=== PATIENT | female | born 1970 | race Caucasian/White ===

== ENCOUNTER 2024-06-16 11:15 | Emergency (ER) | payer BC, SELFPAY ==
[2024-06-16] VITALS (8 sets, daily range): BP systolic 125–150; BP diastolic 59–79; PULSE 68–105; RESP 14–18; TEMP 36.7–36.9; O2SAT 94–99; BMI 30.3
--- NOTE | ~2024-06-16 | XR_ITS ---
EXAMINATION: XR CHEST CLINICAL INFORMATION: Chest pain. COMPARISON: None available. TECHNIQUE: 2 views of the chest were obtained. FINDINGS: The lungs are well expanded. No focal consolidation. No pleural effusion. Cardiac silhouette is within normal limits. XR/XR chest 2V IMPRESSION: No acute abnormality. Electronically signed by: Bird Juarez MD 08/04/2024 09:32 AM EDT RP
--- NOTE | ~2024-06-16 | MR_ITS ---
STUDY PERFORMED: MRA of the chest HISTORY: Chest pain radiating to the back DESCRIPTION: Routine chest MRA protocol without and with contrast was performed. 20 mL's of Gadavist was administered. The images were reviewed and postprocessed on a dedicated 3-D workstation. COMPARISON: None FINDINGS: VASCULAR: Motion artifact is present. ASCENDING AORTA: Ascending thoracic aorta is top normal in size measuring 3.7 cm. Aorta is patent without evidence of acute dissection. AORTIC ARCH: The mid aortic arch 3.2 cm. Two-vessel bovine arch anatomy. The great vessels are patent. No evidence of dissection. DESCENDING AORTA: The mid segment measures 2.2 cm. The aorta is patent without evidence of dissection ABDOMINAL AORTA: Visualized proximal abdominal aorta is normal in caliber. CENTRAL THORACIC VENOUS SYSTEM: Patent NONVASCULAR: Heart is normal in size. Pericardium is normal. No pleural effusions. Motion artifact in the lung parenchyma. MR/MR angio chest wo/w con IMPRESSION: No evidence of aortic dissection.
--- NOTE | ~2024-06-16 | NM_ITS ---
EXAMINATION: PULMONARY PERFUSION STUDY CLINICAL INFORMATION: Elevated d-dimer, pleuritic chest pain. COMPARISON: Chest radiograph 06/16/2024. MRA chest 06/16/2024. TECHNIQUE: Serial gamma scintillation camera images were obtained. The patient received 4 mCi Tc-99m MAA intravenously and a 6-view perfusion study was performed. FINDINGS: No segmental perfusion defects are present. There is homogeneous distribution of activity bilaterally. There are no focal anatomic appearing perfusion defects present. NM/NM pul perfusion IMPRESSION: Normal radionuclide lung ventilation perfusion scan.
--- NOTE | 2024-06-16 11:17 | ECG_ITS ---
Test Reason : cp Blood Pressure : / mmHG Vent. Rate : 099 BPM Atrial Rate : 099 BPM P-R Int : 144 ms QRS Dur : 092 ms QT Int : 352 ms P-R-T Axes : 062 035 071 degrees QTc Int : 451 ms Normal sinus rhythm Normal ECG No previous ECGs available Referred By: Harleen Her Electronically Signed By:KIRK VIZCAINO MD
[2024-06-16 11:56] LABS: MANUAL DIFF FLAG NO
[2024-06-16 11:57] LABS: Basophils Absolute Auto 0.1 X10*3/uL (0.0-0.2); Basophils Percent Auto 1.2 % (0-2); Eosinophils Absolute Auto 0.1 X10*3/uL (0.0-0.4); Eosinophils Percent Auto 2.3 % (0-4); Hematocrit 38.3 % (37.0-47.0); Hemoglobin 13.2 g/dl (12.0-16.0); Imm Gran Abs Auto 0.02 X10*3/uL (0.00-0.03); Imm Gran Pct Auto 0.3 % (0.0-0.4); Lymphocytes Absolute Auto 1.5 X10*3/uL (1.2-4.9); Lymphocytes Percent Auto 25.4 % (20-40); Mean Corpuscular HGB Conc 34.5 g/dl (31.0-35.0); Mean Corpuscular Volume 89.9 fL (80.0-98.0); Mean Platelet Volume 10.1 fL (9.4-12.3); Monocytes Absolute Auto 0.6 X10*3/uL (0.1-1.2); Monocytes Percent Auto 9.5 % (2-11); Neutrophils Absolute Auto 3.7 x10*3/uL (2.0-8.3); Neutrophils Percent Auto 61.3 % (45-73); Platelet Count 280 X10*3/uL (160-400); Red Blood Count 4.26 X10*6/uL (4.20-5.50); Red Cell Distribution Width 13.5 % (11.0-16.0)
[2024-06-16 12:02] LABS: INTERNATIONAL NORM RATIO 0.9 (0.9-1.1); Prothrombin Time 10.9 SEC (11.1-13.3)
[2024-06-16 12:34] LABS: Influenza A PCR NEGATIVE (Negative); Influenza B PCR NEGATIVE (Negative); Resp Syncy Virus RNA Qual PCR NEGATIVE (Negative); SARS COV2 PCR INHOUSE NEGATIVE (Negative)
[2024-06-16 12:39] LABS: Anion Gap 15 (12-20); B Type Natriuretic Peptide 25 pg/mL (<100); Blood Urea Nitrogen 14 mg/dL (9-16); Carbon Dioxide 26 mmol/L (22-29); Chloride 103 mmol/L (96-108); Creatinine Clr Calc Pharmacy 81.2; Estimated Glomerular Filt Rate > 60; Potassium 3.5 mmol/L (3.3-5.1); Sodium 140 mmol/L (135-145)
[2024-06-16 12:40] LABS: Alanine Aminotransferase 17 U/L (0-31); Albumin Level 4.4 g/dL (3.5-5.0); Alkaline Phosphatase 55 U/L (39-117); Aspartate Amino Transferase 24 U/L (5-31); Bilirubin Total 0.3 mg/dL (0.0-1.0); Calcium 9.6 mg/dL (8.4-10.2); Glucose Random 99 mg/dL (60-115); Lipase 21 U/L (8-78); Magnesium 2.1 mg/dL (1.6-2.6); Total Protein 7.4 g/dL (6.5-8.0); Troponin-I High Sensitivity < 2.7 ng/L (<3.5-17.0)
--- NOTE | 2024-06-16 12:47 | ED_ITS ---
HPI - Chest Pain General Chief Complaint: Chest Pain Stated Complaint: Chest pain Time Seen by Provider: 06/16/24 11:52 Source: patient Mode of arrival: ambulatory History of Present Illness ED Provider: Dr Higgins HPI narrative: 53-year-old female with all records and imaging studies at [facility], employee here at [employer] presents with intermittent episodes of lightheadedness, sharp chest pain on the left side with radiation into the back but overall feeling unwell on his though she has chest fullness on the left side. Has known aortic aneurysm at the arch of 4.1 cm which was identified in December of this year. Related Data Allergies Allergy/AdvReac Type Severity Reaction Status Date / Time cephalexin Allergy Unknown Unknown Verified 06/16/24 11:46 ciprofloxacin [Cipro] Allergy Unknown Unknown Verified 06/16/24 11:46 epinephrine Allergy Unknown Unknown Verified 06/16/24 11:46 omeprazole [Prilosec] Allergy Unknown Unknown Verified 06/16/24 11:46 ondansetron [Zofran] Allergy Unknown Unknown Verified 06/16/24 11:46 venlafaxine Allergy Unknown Unknown Verified 06/16/24 11:46 zolpidem Allergy Unknown Unknown Verified 06/16/24 11:46 IV contrast Allergy Unknown Unknown Uncoded 06/16/24 11:46 levoquin Allergy Unknown Unknown Uncoded 06/16/24 11:46 sulfa drugs Allergy Unknown Unknown Uncoded 06/16/24 11:46 Review of Systems 2 Review of Systems: Pertinent positives and negatives as stated in HPI PMFSH Past Medical History Source: nursing notes reviewed Social History Social History Alcohol intake: current Alcohol intake frequency: holidays/special occasions only Smoked in Last 30 Days: No Advance Directives: Yes Advance Directives Information Provided: Yes Advance Directives on File: No Patient : No Physical Exam 2 Vital Signs: Vital Signs: Last Vital Signs Pulse 85 06/16/24 15:45 Resp 16 06/16/24 15:45 BP 131/59 L 06/16/24 15:45 Pulse Ox 97 06/16/24 15:45 O2 Del Method Room Air 06/16/24 15:45 BMI result Body Mass Index 30.3 VITAL SIGNS: Reviewed. GENERAL: Well developed, well nourished, in no acute distress. HEAD: Normocephalic/atraumatic EYES: PERRLA, EOMI EARS: Ext canals without abnormality NOSE: Nares patent bilateral OROPHARYNX: no oral lesions noted, posterior pharynx clear NECK: Supple, no adenopathy LUNGS: Normal breath sounds. No adventitious sounds or accessory muscle use. SpO2<98> CARDIOVASCULAR: Regular rate and rhythm without noted murmurs, no JVD or lower extremity edema. ABDOMEN: Soft, non-tender, non-distended with bowel sounds. MUSCULOSKELETAL: No tenderness, deformities, or effusions noted on gross inspection. EXTREMITIES: No cyanosis, clubbing or edema. SKIN: Inspection of the skin reveals no rashes NEUROLOGIC: Alert and oriented x 4. Strength and sensation to light touch were grossly intact x 4. Medications Administered Discontinued Medications Generic Name Dose Route Start Last Admin Trade Name Freq PRN Reason Stop Dose Admin Lorazepam 1 mg 06/16/24 13:56 06/16/24 14:05 Lorazepam 2 Mg/Ml Vial IVPUSH 06/16/24 13:57 1 mg ONCE ONE Administration Medical Decision Making Medical Decision Making [facility] Narrative: 53-year-old female with history and clinical presentation, DDX: Aneurysm expansion, possible dissection though felt to be mildly less likely, no hypertension at this time, no hypoxia. I reviewed and interpreted all investigations and hematologic indices are without leukocytosis/anemia/thrombocytopenia and chemistry indices are grossly within normal limits to include I sensitivity troponin is being undetectable. CXR negative for infiltrate or venous congestion. EKG: Normal sinus rhythm, HR-99, no STEMI, KS/QRS/QTC is within normal limits, there is no EKG for comparison. Proceed with MRA of chest as patient has history of CT scan IV contrast anaphylaxis but has had MRA without difficulty. Signed out to Dr Manning to follow up with MRA, expect dispo is discharge. Differential Diagnosis Differential Diagnoses: The differential diagnosis associated with the presentation includes Please see the discussion above Admission/Observation Consideration of admission/observation: Escalation of care including admission/observation considered Please see the discussion above Lab Data [facility] Lab Attestation statement: I reviewed the patient's lab results. Please see the discussion above 06/16/24 11:52 06/16/24 11:52 Labs: Lab Results 06/16/24 Range/Units 11:52 WBC 6.0 (4.8-10.8) X10*3/uL RBC 4.26 (4.20-5.50) X10*6/uL Hgb 13.2 (12.0-16.0) g/dl Hct 38.3 (37.0-47.0) % MCV 89.9 (80.0-98.0) fL MCH 31.0 (27.0-33.0) pg MCHC 34.5 (31.0-35.0) g/dl RDW 13.5 (11.0-16.0) % Plt Count 280 (160-400) X10*3/uL MPV 10.1 (9.4-12.3) fL Immature Gran % (Auto) 0.3 (0.0-0.4) % Neut % (Auto) 61.3 (45-73) % Lymph % (Auto) 25.4 (20-40) % [place] % (Auto) 9.5 (2-11) % Eos % (Auto) 2.3 (0-4) % Baso % (Auto) 1.2 (0-2) % Lymph # (Auto) 1.5 (1.2-4.9) X10*3/uL [place] # (Auto) 0.6 (0.1-1.2) X10*3/uL Eos # (Auto) 0.1 (0.0-0.4) X10*3/uL Baso # (Auto) 0.1 (0.0-0.2) X10*3/uL Abs Immat Gran (auto) 0.02 (0.00-0.03) X10*3/uL Absolute Neuts (auto) 3.7 (2.0-8.3) x10*3/uL Absolute Nucleated RBC 0.000 (0.0-0.012) X10*3/uL Nucleated RBC % (auto) 0.0 (0.0-0.2) /100WBC PT 10.9 L (11.1-13.3) SEC INR 0.9 (0.9-1.1) Sodium 140 (135-145) mmol/L Potassium 3.5 (3.3-5.1) mmol/L Chloride 103 (96-108) mmol/L Carbon Dioxide 26 (22-29) mmol/L Anion Gap 15 (12-20) BUN 14 (9-16) mg/dL Creatinine 0.84 (0.5-1.4) mg/dL Estim Creat Clear Calc 81.2 Estimated GFR > 60 Random Glucose 99 (60-115) mg/dL Calcium 9.6 (8.4-10.2) mg/dL Magnesium 2.1 (1.6-2.6) mg/dL Total Bilirubin 0.3 (0.0-1.0) mg/dL AST 24 (5-31) U/L ALT 17 (0-31) U/L Alkaline Phosphatase 55 (39-117) U/L Troponin I High Sens < 2.7 (<3.5-17.0) ng/L B-Natriuretic Peptide 25 (<100) pg/mL Total Protein 7.4 (6.5-8.0) g/dL Albumin 4.4 (3.5-5.0) g/dL Lipase 21 (8-78) U/L Influenza Type A (PCR) NEGATIVE (Negative) Influenza Type B (PCR) NEGATIVE (Negative) RSV RNA Qual (PCR) NEGATIVE (Negative) SARS-CoV-2 RNA (RT-PCR) NEGATIVE (Negative) Independent Interpretation I performed an independent interpretation of an: EKG Interpretation: Please see the discussion Radiology Impression Discussion of test interpretation with radiology: I have reviewed the radiologist's reading. Radiologist Impression: Please see the discussion above. Critical Care Time Critical Care Time Critical Care Time: Yes Total Critical Care Time: 45 Attestation: I attest to the time spent taking care of this patient. Discharge Plan Discharge Clinical Impression: Chest pain Patient Disposition: Still a Patient Print Language: Malian
--- NOTE | 2024-06-16 13:31 | PC.NURSE ---
MRI screening form completed. Pt expresses anxiety and uncertainty regarding procedure. Request to consult with provider again. ED provider notified and will meet with Pt.
[2024-06-16] MEDS: LORazepam 2 MG/ML VIAL 1 MG IVPUSH (14:05)
--- NOTE | 2024-06-16 14:20 | PC.NURSE ---
Pt pre medicated with Ativan prior to MRA however when preparing pt for MRA it was noted another pt in dept needed exam prior to this pt, pt aware.
[2024-06-16] MEDS: Morphine Sulfate 4 MG/ML CARTRIDGE IVPUSH (16:47)
[2024-06-16 17:07] LABS: Troponin-I High Sensitivity 3.2 ng/L (<3.5-17.0)
[2024-06-16] MEDS: LORazepam 2 MG/ML VIAL 0.5 MG IVPUSH (17:15)
--- NOTE | 2024-06-16 17:22 | PC.NURSE ---
Report taken from Stephy GOLDBERG, assumed care of pt at this time. Pt off floor to [facility].
--- NOTE | 2024-06-16 17:24 | PC.NURSE ---
Pt given Ativan for MRA, Dr Manning to bedside for cardiac fast exam.
[2024-06-16 18:18] LABS: D Dimer High Sensitivity 307 NG/ML
--- NOTE | 2024-06-16 18:19 | PC.NURSE ---
Pt remains off floor to MRA.
[2024-06-16] MEDS: gadobutroL 10 ML VIAL IVPUSH ×2 (18:42→18:44)
--- NOTE | 2024-06-16 19:39 | PC.NURSE ---
Pt returned from MRA. Tolerated well per pt report. Reports positive relief from previously administered pain med. Endorsing left sided chest heaviness radiating into back 03/08. Denies accompanying symptoms at rest. A&Ox3 skin pwd respirations even unlabored. VSS. NSR on monitor. Awaiting results, aware of plan of care.
--- NOTE | 2024-06-16 23:16 | PC.NURSE ---
Pt resting comfortably, offers no complaints. VSS. Plan for VQ scan in AM, if negative dc home. Will continue to monitor.
--- NOTE | 2024-06-16 23:45 | MHC.EDTECH ---
pt complaining of dizziness RN aware
[2024-06-16] MEDS: Prochlorperazine Edisylate 10 MG/2 ML VIAL IVPUSH (23:58)
--- NOTE | 2024-06-17 01:11 | PC.NURSE ---
this rn assumed care of pt, pt resting in stretcher, no acute distress noted, respirations even and unlabored. pt normal sinus on tele 70-75bpm.
[2024-06-17 05:25] VITALS: PULSE 60; RESP 15
[2024-06-17 05:33] VITALS: BP 106/55; PULSE 77; RESP 16; TEMP 36.7; O2SAT 98
--- NOTE | 2024-06-17 07:42 | PC.NURSE ---
care assumed from previous RN, patient asleep on stretcher, remains on desk monitor, respirations even and unlabored. no complaints offered at this time
--- NOTE | 2024-06-17 09:22 | PC.NURSE ---
patient remains at nuclear medicine at this time
[2024-06-17 10:21] VITALS: BP 99/59; PULSE 59; RESP 19; TEMP 36.8; O2SAT 99
[2024-06-17 10:24] VITALS: BP 99/59; PULSE 59; RESP 19; TEMP 36.8; O2SAT 99
== END 2024-06-17 10:25 | disposition home or self-care (01) ==
PROVIDERS: Nurse Practitioner Family; Emergency Provider Emergency Medicine
DX: R07.9 Chest pain, unspecified (principal); R42 Dizziness and giddiness; R06.00 Dyspnea, unspecified; Z03.818 Encounter for observation for suspected exposure to other biological agents ruled out
CPT/HCPCS: 0241U; 36415; 71046; 71555; 78580; 80053; 83690; 83735; 83880; 84484; 85025; 85379; 85610; 93005; 96374; 96375; 96376; 99285; A9540; A9585; J0737; J2060; J2270

== ENCOUNTER → 2024-06-16 11:17 | Outpatient (BNV) | payer BC, SELFPAY | PROVIDERS: Emergency Provider Student in an Organized Health Care Education/Training Program; Visit Provider Internal Medicine Cardiovascular Disease | DX: R07.9 Chest pain, unspecified (principal) | CPT/HCPCS: 93010 ==

== ENCOUNTER 2025-02-22 13:28 | Emergency (ER) | payer BC, SELFPAY ==
[2025-02-22] VITALS (7 sets, daily range): BP systolic 117–182; BP diastolic 65–103; PULSE 75–108; RESP 16–20; TEMP 36.6–36.9; O2SAT 95–99; BMI 30.2
--- NOTE | ~2025-02-22 | US_ITS ---
CLINICAL HISTORY: calf pain, cp, ? DVT Venous duplex ultrasound bilateral lower extremity Comparison: None Findings: The visualized deep veins are fully compressible with normal Doppler color flow and spectral tracings. Right popliteal fossa Wilson's cyst measuring 5.3 cm. IMPRESSION: 1. Negative for bilateral lower extremity deep vein thrombosis. This document has been electronically signed by: Ramón Carvalho MD on 02/22/2025 21:42:29
--- NOTE | 2025-02-22 13:41 | ED.GENADULT ---
HPI - General Adult General Chief complaint: Allergic Reaction Stated complaint: allergic reaction Time Seen by Provider: 02/22/25 15:42 Source: patient Mode of arrival: ambulatory Limitations: no limitations History of Present Illness ED Provider: ERNIE MOON PA-C HPI narrative: 54 year old female presents to the ED today for evaluation of possible allergic reaction . She reports feeling generally unwell since Wednesday (x4 days). She took two days off of work where she spent a majority of her time sleeping on her couch. She has been consuming electrolyte drinks over the last few days. Today she tried a peach drink from a brand she has never used before. No known food allergies. She also ate a home made meal for lunch which her had also consumed without issue. Shortly after this she began noticing hives to all four extremities and torso. She took 25 mg Benadryl around 1310 while at work. Her symptoms were not improving and she was advised by her employer to come to the ED for further evaluation. On arrival she began to feel ill and had an episode of vomiting and diarrhea while in the waiting room bathroom. Triage provider treated her with oral pepcid and prednisone and she was brought back to main ED bed for further evaluation. She denies any difficulty swallowing or breathing. Denies shortness of breath. Denies any itching to her throat. Her rash as improved and is nearly resolved. She admits to nausea and chest discomfort, describing a pressure sensation across her chest. No radiation. No known sick contacts however does work in the radiology department at our facility. No new medications or recent medication changes. No new soaps/ lotions/ detergents. No known tick or insect bites. Related Data Previous Rx's ?Medication ?Instructions ?Recorded diphenhydramine HCl 25 mg tablet 25 mg PO Q8H PRN allergic reaction 02/22/25 (Benadryl Allergy) #20 tabs prednisone 20 mg tablet 40 mg (2 x 20 mg) PO DAILY #5 tabs 02/22/25 Allergies Allergy/AdvReac Type Severity Reaction Status Date / Time cephalexin Allergy Unknown Unknown Verified 02/22/25 13:42 ciprofloxacin [Cipro] Allergy Unknown Unknown Verified 02/22/25 13:42 epinephrine Allergy Unknown Unknown Verified 02/22/25 13:42 omeprazole [Prilosec] Allergy Unknown Unknown Verified 02/22/25 13:42 ondansetron [Zofran] Allergy Unknown Unknown Verified 02/22/25 13:42 venlafaxine Allergy Unknown Unknown Verified 02/22/25 13:42 zolpidem Allergy Unknown Unknown Verified 02/22/25 13:42 IV contrast Allergy Unknown Unknown Uncoded 06/16/24 11:46 levoquin Allergy Unknown Unknown Uncoded 06/16/24 11:46 sulfa drugs Allergy Unknown Unknown Uncoded 06/16/24 11:46 Review of Systems Review of Systems: Yes all other systems are reviewed and are negative [facility] Past Medical History Attestation statement: The following information was validated with the patient. Source: old records reviewed and nursing notes reviewed Social History Social History Unable to assess alcohol history related to: Unknown Alcohol intake: current Alcohol intake frequency: holidays/special occasions only Use of substances other than those prescribed or required for medical reasons: Unknown Advance Directives: No Advance Directives Information Provided: Yes Physical Exam ED Vital Signs: Vital Signs - 24 hr 02/22/25 13:40 02/22/25 14:52 02/22/25 16:45 Temperature 98.3 F 98 F 97.9 F Pulse Rate 108 H 94 75 Respiratory Rate 20 18 18 Blood Pressure 177/103 H 182/86 H 122/65 Pulse Oximetry 99 96 97 Oxygen Delivery Method Room Air Room Air Room Air 02/22/25 16:46 02/22/25 19:23 02/22/25 22:12 Temperature 98.5 F Pulse Rate 106 H 92 Respiratory Rate 16 16 Blood Pressure 117/69 170/80 H 133/72 Pulse Oximetry 98 95 Oxygen Delivery Method Room Air Room Air BMI result Body Mass Index 30.2 hypertensive, vitals wnl General: Well appearing, in no acute distress. Skin: Warm, dry, intact. No rashes or lesions. Head: Normocephalic, atraumatic. EENT: Hearing is intact b/l. Conjunctiva clear. PERRLA. EOM intact. Moist mucous membranes.?no angioedema. posterior oropharynx wnl. uvula midline. controlled secretions, speaking in complete sentenes. Neck: Supple without LAD Cardiac: Chest wall symmetric. RRR Lungs: Normal respiratory effort without accessory muscle use. CTA bilaterally. No rales, rhonchi, or wheezes.? Abdomen: Soft, non-tender, non-distended. No rebound tenderness or guarding. Positive BS x4. Back: No midline spinous or paraspinal tenderness. No step off deformity. Ext: Upper and lower extremities atraumatic, without tenderness, deformity, swelling or erythema Neuro: AOx3. Normal speech. Ambulating with steady gait. Course Course Course Narrative: This is a rapid medical exam performed by Cipriano Santoyo NP: Additional HPI, ROS, PE not included below will be deferred to primary provider. Patient is a 54-year-old female with multiple allergies presenting with complaint of allergic reaction. States after lunch, noted redness to leg, arm, chest. Reports some nausea. Took benadryl at 1:10. Reports feeling anxious in triage. No angioedema, uvula edema, lungs CTA. Reevaluation(s) Reevaluation #1: 182 -- CBC without leukocytosis or left shift. No anemia. H&H stable. Chemistry without acute electrolyte abnormality requiring intervention. BUN slightly elevated at 19, normal creatinine. Normal liver function. Troponin undetectable. EKG showing normal sinus rhythm with a rate of 94 beats per minute, QT 362, QTC 452. No acute ischemic changes or ST elevations. Urine without infection. > on re-evaluation, patient still endorsing chest discomfort/ tightness. she states pain has been intermittent however improved since arrival. no longer a pressure sensation. given bump in trop, although still wnl, will repeat 2 hour troponin. repeat ekg ordered. she also reports some anxiety surrounding the situation. she is unclear if this is causing her chest pain. requesting ativan for anxiety and meds for her headache. toradol ordered. 1899 -- patient stable at the end of my shift. bp has improved to 120's/60's, equal in both UEs. she is no longer tachycardic. sign out given to allegra HAMEED pending repeat trop and disposition. Reevaluation #2: I went to go re-evaluate patient her 3rd troponin is negative she does mention that her chest still feels heavy and she is having some chest discomfort which she has never really experienced before. She also mentions that on Wednesday she had some posterior knee/ leg discomfort while at the gym it was uncomfortable enough where patient had to stop working out because of this. She has no history of DVT or PE. She is not anticoagulated. While she has been here she has been persistently tachycardic heart rates greater than 100. At this time will order bilateral DVT studies to lower extremities and will order a D-dimer if this is positive patient will need a V/Q scan as she has anaphylactic reaction to contrast dye. Sign out to Rosemarie Time: 20:47 Reevaluation #3: I Donavon HAMEED have accepted care of the patient and signed out pending dimer and Doppler studies of bilateral lower extremities and final disposition I have independently reviewed the following tests: Labs: Dimer negative at less than 150 Bilateral venous studies:IMPRESSION: 1. Negative for bilateral lower extremity deep vein thrombosis. discussed results with the patient, she is relieved, eager for discharge Medications Administered Discontinued Medications Generic Name Dose Route Start Last Admin Trade Name Freq PRN Reason Stop Dose Admin Diphenhydramine HCl 25 mg 02/22/25 15:52 02/22/25 16:07 Diphenhydramine Hcl 50 Mg/Ml Vial IVPUSH 02/22/25 15:53 25 mg ONCE ONE Administration Famotidine 20 mg 02/22/25 13:47 02/22/25 14:51 Famotidine 20 Mg Tablet PO 02/22/25 13:48 20 mg ONCE ONE Administration Ketorolac Tromethamine 15 mg 02/22/25 18:45 02/22/25 18:52 Ketorolac Tromethamine 15 Mg/Ml Vial IVPUSH 02/22/25 18:46 15 mg ONCE ONE Administration Lorazepam 0.5 mg 02/22/25 18:44 02/22/25 18:52 Lorazepam 2 Mg/Ml Vial IVPUSH 02/22/25 18:45 0.5 mg ONCE ONE Administration Metoclopramide HCl 10 mg 02/22/25 15:52 02/22/25 16:07 Metoclopramide Hcl 10 Mg/2 Ml Vial IVPUSH 02/22/25 15:53 10 mg ONCE ONE Administration Prednisone 60 mg 02/22/25 13:47 02/22/25 14:50 Prednisone 20 Mg Tablet PO 02/22/25 13:48 60 mg ONCE ONE Administration Medical Decision Making Medical Decision Making MDM Narrative: 54 year old female presents to the ED today for evaluation of possible allergic reaction . she is hypertensive and tachycardic, not hypoxic. afebrile. she is generally well appearing and in NAD. no angio edema. posterior oropharynx is wnl. uvula midline, controlling secretions and speaking in complete sentences. no muffled voices. no respiratory distress. lungs cta. no rashes. Differential diagnosis includes allergic reaction, anemia, electrolyte abnormality, dehydration, viral syndrome, gastroenteritis, anxiety, arrhythmia. EKG ordered from triage. Will add on basic labs/ troponin, viral swabs. Prednisone and pepcid ordered from triage. She reports nausea - allergy to zofran. benadryl and reglan ordered. will continue to monitor. Differential Diagnosis Differential Diagnoses: The differential diagnosis associated with the presentation includes as above. Admission/Observation Consideration of admission/observation: Escalation of care including admission/observation considered Lab Data MDM Lab Attestation statement: I reviewed the patient's lab results. as above. 02/22/25 16:04 02/22/25 16:04 Labs: Lab Results 02/22/25 02/22/25 02/22/25 Range/Units 16:04 16:10 18:09 WBC 7.1 (4.8-10.8) X10*3/uL RBC 4.69 (4.20-5.50) X10*6/uL Hgb 14.2 (12.0-16.0) g/dl Hct 42.4 (37.0-47.0) % MCV 90.4 (80.0-98.0) fL MCH 30.3 (27.0-33.0) pg MCHC 33.5 (31.0-35.0) g/dl RDW 13.5 (11.0-16.0) % Plt Count 292 (160-400) X10*3/uL MPV 9.7 (9.4-12.3) fL Immature Gran % (Auto) 0.1 (0.0-0.4) % Neut % (Auto) 74.5 H (45-73) % Lymph % (Auto) 18.0 L (20-40) % [place] % (Auto) 5.5 (2-11) % Eos % (Auto) 0.9 (0-4) % Baso % (Auto) 1.0 (0-2) % Lymph # (Auto) 1.3 (1.2-4.9) X10*3/uL [place] # (Auto) 0.4 (0.1-1.2) X10*3/uL Eos # (Auto) 0.1 (0.0-0.4) X10*3/uL Baso # (Auto) 0.1 (0.0-0.2) X10*3/uL Abs Immat Gran (auto) 0.01 (0.00-0.03) X10*3/uL Absolute Neuts (auto) 5.3 (2.0-8.3) x10*3/uL Absolute Nucleated RBC 0.000 (0.0-0.012) X10*3/uL Nucleated RBC % (auto) 0.0 (0.0-0.2) /100WBC D-Dimer High Sensitivty NG/ML Sodium 140 (135-145) mmol/L Potassium 4.4 D (3.3-5.1) mmol/L Chloride 106 (96-108) mmol/L Carbon Dioxide 27 (22-29) mmol/L Anion Gap 11 L (12-20) BUN 19 H (9-16) mg/dL Creatinine 0.91 (0.5-1.4) mg/dL Estim Creat Clear Calc 74.0 Estimated GFR > 60 Random Glucose 106 (60-115) mg/dL Calcium 9.7 (8.4-10.2) mg/dL Magnesium 2.2 (1.6-2.6) mg/dL Total Bilirubin 0.2 (0.0-1.0) mg/dL AST 28 (5-31) U/L ALT 26 (0-31) U/L Alkaline Phosphatase 71 (39-117) U/L Troponin I High Sens < 2.7 7.5 D (<3.5-17.0) ng/L Total Protein 7.7 (6.5-8.0) g/dL Albumin 4.5 (3.5-5.0) g/dL Lipase 22 (8-78) U/L Urine Color Yellow Urine Appearance Clear Urine pH 6.5 (5.0-9.0) Ur Specific [place] <= 1.005 (1.005-1.025) Urine Protein Negative (Neg-Trace) mg/dL Urine Glucose (UA) Negative (Negative) mg/dL Urine Ketones Negative (Negative) mg/dL Urine Blood Negative (Negative) Urine Nitrite Negative (Negative) Ur Leukocyte Esterase Negative (Negative) Influenza Type A (PCR) NEGATIVE (Negative) Influenza Type B (PCR) NEGATIVE (Negative) RSV RNA Qual (PCR) NEGATIVE (Negative) SARS-CoV-2 RNA (RT-PCR) NEGATIVE (Negative) 02/22/25 02/22/25 Range/Units 20:05 21:36 WBC (4.8-10.8) X10*3/uL RBC (4.20-5.50) X10*6/uL Hgb (12.0-16.0) g/dl Hct (37.0-47.0) % MCV (80.0-98.0) fL MCH (27.0-33.0) pg MCHC (31.0-35.0) g/dl RDW (11.0-16.0) % Plt Count (160-400) X10*3/uL MPV (9.4-12.3) fL Immature Gran % (Auto) (0.0-0.4) % Neut % (Auto) (45-73) % Lymph % (Auto) (20-40) % [place] % (Auto) (2-11) % Eos % (Auto) (0-4) % Baso % (Auto) (0-2) % Lymph # (Auto) (1.2-4.9) X10*3/uL [place] # (Auto) (0.1-1.2) X10*3/uL Eos # (Auto) (0.0-0.4) X10*3/uL Baso # (Auto) (0.0-0.2) X10*3/uL Abs Immat Gran (auto) (0.00-0.03) X10*3/uL Absolute Neuts (auto) (2.0-8.3) x10*3/uL Absolute Nucleated RBC (0.0-0.012) X10*3/uL Nucleated RBC % (auto) (0.0-0.2) /100WBC D-Dimer High Sensitivty < 150 NG/ML Sodium (135-145) mmol/L Potassium (3.3-5.1) mmol/L Chloride (96-108) mmol/L Carbon Dioxide (22-29) mmol/L Anion Gap (12-20) BUN (9-16) mg/dL Creatinine (0.5-1.4) mg/dL Estim Creat Clear Calc Estimated GFR Random Glucose (60-115) mg/dL Calcium (8.4-10.2) mg/dL Magnesium (1.6-2.6) mg/dL Total Bilirubin (0.0-1.0) mg/dL AST (5-31) U/L ALT (0-31) U/L Alkaline Phosphatase (39-117) U/L Troponin I High Sens < 2.7 D (<3.5-17.0) ng/L Total Protein (6.5-8.0) g/dL Albumin (3.5-5.0) g/dL Lipase (8-78) U/L Urine Color Urine Appearance Urine pH (5.0-9.0) Ur Specific [place] (1.005-1.025) Urine Protein (Neg-Trace) mg/dL Urine Glucose (UA) (Negative) mg/dL Urine Ketones (Negative) mg/dL Urine Blood (Negative) Urine Nitrite (Negative) Ur Leukocyte Esterase (Negative) Influenza Type A (PCR) (Negative) Influenza Type B (PCR) (Negative) RSV RNA Qual (PCR) (Negative) SARS-CoV-2 RNA (RT-PCR) (Negative) Independent Interpretation I performed an independent interpretation of an: EKG Interpretation: ekg showing nsr with rate of 94 bpm, no acute ischemic changes or st elevations repeat ekg showing nsr with rate of 90 bpm, no acute ischemic changes or st elevations Prescription Management I considered prescription management with: Pain Medication Social Determinants Patient?s care significantly limited by Social Determinants of Health including: Other Social Determinant of Health Critical Care Time Critical Care Time Critical Care Time: No Discharge Plan Discharge Clinical Impression: Allergic reaction Patient Disposition: Still a Patient Instructions: General Allergic Reaction (ED), Allergy Testing (ED) Additional Instructions: You have been evaluated in the Emergency Department today for an allergic reaction. You have been given medications to control your symptoms and after observation for several hours in the Emergency Department, you are stable for discharge at this time. You can take zyrtec and Pepcid, which are available over the counter, to help control your symptoms at home. You have also been given a prescription for steroids, please take them as directed starting tomorrow. Please schedule an appointment with your primary care provider for follow up. I have provided you with a referral to an arc cutter plasma arc for further testing. Call them to establish care, they will not call you. Return to the Emergency Department if you experience rashes, difficulty breathing or swallowing, lip/mouth/tongue swelling, vomiting, or for any other concerning symptoms. Prescriptions: New prednisone 20 mg tablet 40 mg PO DAILY Qty: 5 0RF diphenhydramine HCl [Benadryl Allergy] 25 mg tablet 25 mg PO Q8H PRN (Reason: allergic reaction) Qty: 20 0RF Referrals: Johnie Aguirre MD [Physician] - 3 days (allergic reaction) Real Dasilva MD [Primary Care Provider] - Stand Alone Forms: Work/School Release Print Language: Uzbek
[2025-02-22] MEDS: predniSONE 20 MG TABLET 60 MG PO (14:50)
[2025-02-22] MEDS: Famotidine 20 MG TABLET PO (14:51)
--- NOTE | 2025-02-22 14:52 | ECG_ITS ---
Test Reason : CP Blood Pressure : */* mmHG Vent. Rate : 94 BPM Atrial Rate : 94 BPM P-R Int : 134 ms QRS Dur : 82 ms QT Int : 362 ms P-R-T Axes : 53 11 41 degrees QTcB Int : 452 ms Normal sinus rhythm Possible Left atrial enlargement Cannot rule out Anterior infarct , age undetermined Abnormal ECG When compared with ECG of 16-Jun-2024 11:28, Nonspecific T wave abnormality no longer evident in Lateral leads Referred By: Tiffany Santoyo Electronically Signed By: KIRK VIZCAINO MD
[2025-02-22] MEDS: Metoclopramide HCl 10 MG/2 ML VIAL IVPUSH (16:07)
[2025-02-22] MEDS: diphenhydrAMINE HCL 50 MG/ML VIAL 25 MG IVPUSH (16:07)
[2025-02-22 16:10] LABS: MANUAL DIFF FLAG NO
[2025-02-22 16:15] LABS: Basophils Absolute Auto 0.1 X10*3/uL (0.0-0.2); Eosinophils Absolute Auto 0.1 X10*3/uL (0.0-0.4); Eosinophils Percent Auto 0.9 % (0-4); Hematocrit 42.4 % (37.0-47.0); Hemoglobin 14.2 g/dl (12.0-16.0); Imm Gran Abs Auto 0.01 X10*3/uL (0.00-0.03); Imm Gran Pct Auto 0.1 % (0.0-0.4); Lymphocytes Absolute Auto 1.3 X10*3/uL (1.2-4.9); Mean Corpuscular HGB Conc 33.5 g/dl (31.0-35.0); Mean Corpuscular Hemoglobin 30.3 pg (27.0-33.0); Mean Corpuscular Volume 90.4 fL (80.0-98.0); Mean Platelet Volume 9.7 fL (9.4-12.3); Monocytes Absolute Auto 0.4 X10*3/uL (0.1-1.2); Monocytes Percent Auto 5.5 % (2-11); Neutrophils Absolute Auto 5.3 x10*3/uL (2.0-8.3); Neutrophils Percent Auto 74.5 % (45-73); Platelet Count 292 X10*3/uL (160-400); Red Blood Count 4.69 X10*6/uL (4.20-5.50); Red Cell Distribution Width 13.5 % (11.0-16.0); White Blood Count 7.1 X10*3/uL (4.8-10.8)
[2025-02-22 16:22] LABS: Appearance Urine Clear; Color Urine Yellow; Glucose Urine UA Negative (Negative); Leukocyte Esterase Urine Negative (Negative); Nitrite Urine Negative (Negative); PH 6.5 (5.0-9.0); Specific Gravity - Urine <= 1.005 (1.005-1.025); Urine Blood Negative (Negative); Urine Ketones Negative (Negative); Urine Protein Negative (Neg-Trace)
[2025-02-22 16:27] LABS: Anion Gap 11 (12-20)
[2025-02-22 16:35] LABS: Alanine Aminotransferase 26 U/L (0-31); Albumin Level 4.5 g/dL (3.5-5.0); Aspartate Amino Transferase 28 U/L (5-31); Bilirubin Total 0.2 mg/dL (0.0-1.0); Blood Urea Nitrogen 19 mg/dL (9-16); Calcium 9.7 mg/dL (8.4-10.2); Carbon Dioxide 27 mmol/L (22-29); Chloride 106 mmol/L (96-108); Estimated Glomerular Filt Rate > 60; Glucose Random 106 mg/dL (60-115); Lipase 22 U/L (8-78); Magnesium 2.2 mg/dL (1.6-2.6); Potassium 4.4 mmol/L (3.3-5.1); Sodium 140 mmol/L (135-145); Total Protein 7.7 g/dL (6.5-8.0)
[2025-02-22 16:38] LABS: Troponin-I High Sensitivity < 2.7 ng/L (<3.5-17.0)
[2025-02-22 16:39] LABS: Alkaline Phosphatase 71 U/L (39-117)
[2025-02-22 17:04] LABS: Influenza A PCR NEGATIVE (Negative); Influenza B PCR NEGATIVE (Negative); Resp Syncy Virus RNA Qual PCR NEGATIVE (Negative); SARS COV2 PCR INHOUSE NEGATIVE (Negative)
[2025-02-22 18:36] LABS: Troponin-I High Sensitivity 7.5 ng/L (<3.5-17.0)
--- NOTE | 2025-02-22 18:48 | ECG_ITS ---
Test Reason : high trop Blood Pressure : */* mmHG Vent. Rate : 90 BPM Atrial Rate : 90 BPM P-R Int : 138 ms QRS Dur : 92 ms QT Int : 382 ms P-R-T Axes : 60 35 43 degrees QTcB Int : 467 ms Normal sinus rhythm Normal ECG When compared with ECG of 22-Feb-2025 15:05, No significant change was found Referred By: Cynthia Johnson Electronically Signed By: KIRK VIZCAINO MD
[2025-02-22] MEDS: Ketorolac Tromethamine 15 MG/ML VIAL IVPUSH (18:52)
[2025-02-22] MEDS: LORazepam 2 MG/ML VIAL 0.5 MG IVPUSH (18:52)
[2025-02-22 20:32] LABS: Troponin-I High Sensitivity < 2.7 ng/L (<3.5-17.0)
[2025-02-22 22:17] LABS: D Dimer High Sensitivity < 150 NG/ML
== END 2025-02-22 22:53 | disposition still patient (30) ==
PROVIDERS: Physician Assistant; Physician Assistant Medical; Emergency Provider Emergency Medicine; PCP Internal Medicine
DX: T78.40XA Allergy, unspecified, initial encounter (principal); L50.9 Urticaria, unspecified; X58.XXXA Exposure to other specified factors, initial encounter; R00.0 Tachycardia, unspecified; I10 Essential (primary) hypertension; R07.9 Chest pain, unspecified; M79.662 Pain in left lower leg; M79.661 Pain in right lower leg; Z03.818 Encounter for observation for suspected exposure to other biological agents ruled out
CPT/HCPCS: 0241U; 36415; 80053; 81003; 83690; 83735; 84484; 85025; 85379; 93005; 93970; 96374; 96375; 99284; 99285; J1200; J1885; J2060; J2765

== ENCOUNTER → 2025-02-22 14:52 | Outpatient (BNV) | payer BC, SELFPAY | PROVIDERS: PCP Internal Medicine; Visit Provider Internal Medicine Cardiovascular Disease | DX: R79.89 Other specified abnormal findings of blood chemistry (principal) | CPT/HCPCS: 93010 ==

== ENCOUNTER → 2025-02-22 20:45 | Outpatient (BNV) | payer BC, SELFPAY | PROVIDERS: Emergency Provider Emergency Medicine; PCP Internal Medicine; Visit Provider Radiology Diagnostic Radiology | DX: M71.21 Synovial cyst of popliteal space [Baker], right knee (principal); M79.661 Pain in right lower leg; M79.662 Pain in left lower leg | CPT/HCPCS: 93970 ==

== ENCOUNTER 2025-07-12 14:23 | Outpatient (AMB) | payer BC, SELFPAY ==
--- NOTE | 2025-07-12 14:26 | AM.OFFWIN_ITS ---
Intake Vital Signs 3 07/12/25 14:27 Height 5 ft 5 in Weight 80 lb BMI 13.3 BP 134/80 Blood Pressure Location Lt brachial Position Sitting Pulse 73 Pulse Source Pulse Oximeter Temp 97.8 F Temp Source Oral Pulse Oximetry (%) 97 Oxygen Delivery Method Room Air Intake Visit Reasons: EP Rash under arms, burning, itching Intake Note: presents with itchy and burning rash under axillae, spreading to face and groin. c/o body chills. otc desitin, antifungal, benadryl unhelpful Allergies cephalexin Allergy (Unknown, Verified 07/12/25 14:31) Unknown ciprofloxacin (Cipro) Allergy (Unknown, Verified 07/12/25 14:31) Unknown epinephrine Allergy (Unknown, Verified 07/12/25 14:31) Unknown omeprazole (Prilosec) Allergy (Unknown, Verified 07/12/25 14:31) Unknown ondansetron (Zofran) Allergy (Unknown, Verified 07/12/25 14:31) Unknown venlafaxine Allergy (Unknown, Verified 07/12/25 14:31) Unknown zolpidem Allergy (Unknown, Verified 07/12/25 14:31) Unknown IV contrast Allergy (Unknown, Uncoded 06/16/24 11:46) Unknown levoquin Allergy (Unknown, Uncoded 06/16/24 11:46) Unknown sulfa drugs Allergy (Unknown, Uncoded 06/16/24 11:46) Unknown Do you need a note to return to daycare/school/sports/work: Yes HPI HPI Comments 2 History of Present Illness0 Details 54 y/o Female patient who presents to [facility] walk in clinic with c/o Rash on both Armpits. Reports that 2 weeks ago she used her 's Deodorant (Old Spice) and ended up with very itchy and burning rash under armpits. She used OTC Antifungal creams and rash went away. Rash returned few days ago - reports burning, itching and redness. She started to use OTC Clotrimazole, Bacitracin and Hydrocortisone creams with no relief. Denies fevers, chills, nausea or vomiting. Reports being under alot of stress, she was recently admitted and was worked up for MS. Reports having multiple testing and procedures done. [facility] Medical History (Updated 07/12/25 @ 14:43 by Celine Crowell NP) Rash and nonspecific skin eruption Social History Unable to assess alcohol history related to: Unknown Alcohol intake: current Alcohol intake frequency: holidays/special occasions only Review of Systems Const All systems reviewed & are unremarkable except as noted in HPI and below Physical Exam Vital Signs: Last Vital Signs Temp 97.8 F 07/12/25 14:27 Pulse 73 07/12/25 14:27 BP 134/80 07/12/25 14:27 Pulse Ox 97 07/12/25 14:27 Oxygen Delivery Method Room Air 07/12/25 14:27 BMI result Body Mass Index 13.3 Const General: no acute distress Nutritional Appearance: overweight Orientation/consciousness: patient oriented x3 Chest Chest/axillae images: 2 1. Dry Flaky erythematous skin 2. Dry Flaky erythematous skin Neuro General: patient oriented x3, gait normal and moves all extremities Psych Speech and movement: Normal speech and movement present Assessment & Plan Assessment & Plan (1) Rash and nonspecific skin eruption: Code(s): R21 - Rash and other nonspecific skin eruption Plan: DDx's: Dermatitis vs Eczema vs Fungal Ordered Lotrisone cream for 2 weeks and 1 week off Keep the area clean and dry Do not apply any deodorants or perfume until completely healed. Medications: New 2 clotrimazole-betamethasone 1-0.05 % 1 appl topical BID 45 grams 1RF 2 weeks R21 - Rash and other nonspecific skin eruption Discontinued 2 prednisone Discontinued Reason: Patient Completed Course 40 mg (2 x 20 mg) PO DAILY 5 tabs 0RF Coding Level of Care Code Est Pt Level 4 (60836) Diagnoses Rash and nonspecific skin eruption R21 Time Spent (min) 20
[2025-07-12 14:27] VITALS: BP 134/80; PULSE 73; TEMP 36.6; O2SAT 97; BMI 13.3
--- OUTSIDE RECORDS SUMMARY | 2025-07-12 15:07 | XMS_ITS | Clinical Summary ---
Author Organization [facility] Address [address] [place] [address] Care Team Providers Care Ict Support Technicians Name Role Phone Xochitl Palmer MD Primary Care Provider [phone] Social History Tobacco Use Types Packs/Day Years Used Date Smoking Tobacco: Never Assessed Comments Unknown Sex and Gender Information Value Date Recorded Sex Assigned at Not on file Legal Sex Female 8:00 PM EST Gender Identity Not on file Sexual Orientation Not on file Plan of Treatment Health Maintenance Due Date Last Done Comments Hepatitis C Virus Screening 1969 HIV Screening 1982 DTaP/Tdap/Td Vaccines (1 - Tdap) 1988 Hepatitis B Vaccines (1 of 3 - 19+ 3-dose series) 03/1989 Pneumococcal Vaccines 50+ (1 of 1 - PCV) 2019 Zoster (Shingles) Vaccine (1 of 2) 2019 COVID-19 Vaccine (1 - 2023- season) 2024 Care Teams Ict Support Technicians Relationship Specialty Start Date End Date Xochitl Palmer MD [address] [place] [address] PCP - General
--- OUTSIDE RECORDS SUMMARY | 2025-07-12 15:07 | XMS_ITS ---
Author Name [facility] Organization Unknown Results Test Name/Text Value Interpretation Date Range Source BUN SerPl-mCnc 16.0 mg/dL 06/11/2025 7 - 17 [facility]_ [facility] ALT SerPl-cCnc 17.0 unit/L 06/11/2025 7 - 52 [facility] Creat SerPl-mCnc 0.6 mg/dL 06/11/2025 0.5 - 1 CT [facility] Prot SerPl-mCnc 6.5 g/dL 06/11/2025 6.4 - 8.5 CT_ [facility] CO2 SerPl-sCnc 30.0 mmol/L 06/11/2025 24 - 32 CT _[facility] ALP SerPl-cCnc 42.0 unit/L 06/11/2025 34 - 104 CT [facility] Potassium SerPl-sCnc 3.9 mmol/L 06/11/2025 3.5 - 5 .1 [facility] BUN/Creat SerPl 26.7 Above high normal 06/11/2025 12 - 20 [facility] Glucose SerPl-mCnc 105.0 mg/dL 06/11/2025 70 - 199 [facility] Chloride SerPl-sCnc 104.0 mmol/L 06/11/2025 98 - 1 07 [facility] eGFRcr SerPlBld CKD-EPI 2020 106.0 mL/min/1.73m2 06/11/2025 - [facility] Albumin SerPl-mCnc 4.1 g/dL 06/11/2025 3.5 - 5 [facility] Anion Gap SerPl Calc-sCnc 6.0 06/11/2025 5 - 14 [facility] Sodium SerPl-sCnc 140.0 mmol/L 06/11/2025 135 - 14 5 [facility] AST SerPl-cCnc 22.0 unit/L 06/11/2025 5 - 40 CT [facility] Calcium SerPl-mCnc 9.3 mg/dL 06/11/2025 8.4 - 10.2 [facility] Bilirub SerPl-mCnc 0.2 mg/dL Below low normal 06/11/2025 0.3 - 1 [facility] lamoTRIgine SerPl-mCnc 0.3 ug/mL Below low normal 06/14/2025 2 - 15 [facility] History of Medication Use Medication Directions Dispensed Refills Start Date End Date Stat topiramate (Topamax) 25 mg tablet Take 1 tablet (25 mg total) by mouth at bedtime for 7 days, THEN 1 tablet (25 mg total) 2 (two) times a day. 07/03/2025 active diphenhydrAMINE (BENADRYL) capsule 25 mg 25 mg, oral, Nightly PRN, itching, sleep, Starting on Wed06/12/25 at 0852 06/12/2025 active estradioL (ESTRACE) tablet 2 mg 2 mg, oral, Daily, First dose on Wed06/12/25 at 0900, Package insert for estrogens should be provided to patients with first dose and every 30 days of therapy. HAZARDOUS Drug Precautions - Low Risk (Category A/NIOSH Group 3) Reproductive Risk Only: - Single pair of ASTM standard D6978 certified ivet 06/12/2025 active loperamide (IMODIUM) capsule 2 mg 2 mg, oral, 4 times daily PRN, diarrhea, Starting on Wed06/12/25 at 1038 06/12/2025 active metoclopramide (REGLAN) tablet 5 mg 5 mg, oral, 2 times daily PRN, nausea, vomiting, Starting on Wed06/12/25 at 1045 06/12/2025 active multivitamin tablet 1 tablet 1 tablet (1 each), oral, Daily, First dose on Wed06/12/25 at 0900 06/12/2025 active acetaminophen (TYLENOL) tablet 650 mg 650 mg, oral, Every 6 hours PRN, mild pain, Starting on Wed06/11/25 at 0913 06/11/2025 active albuterol 1.25 mg/3 mL nebulizer solution 1.25 mg 06/11/2025 active ibuprofen (ADVIL,MOTRIN) tablet 400 mg 400 mg, oral, Every 6 hours PRN, headaches, Starting on Wed06/11/25 at 0913, Administer with food or milk to decrease GI upset 06/11/2025 active LORazepam (ATIVAN) injection 1 mg 1 mg, intravenous, See admin instructions, Starting on Wed06/11/25 at 0915, For seizure with convulsions and loss of consciousness lasting more than 1 minute give 1 mg IV ativan. If seizure persists for 5 more minutes give a second dose of 1 mg Ativan. Prior to IV use, lorazepam injection should be 06/11/2025 active sodium chloride 0.9 % flush 10 mL [Order 1 Start] Name: Insert peripheral IV Signed Summary: STAT, Once, On Wed06/11/25 at 0916, For 1 occurrence [Order 1 End] [Order 2 Start] Name: Maintain IV access Signed Summary: Until discontinued, Starting on Wed06/11/25 at 0916, Until Specified [Order 2 End] [Order 3 Start] Name: Saline lock 06/11/2025 active baclofen (LIORESAL) 10 mg tablet Take 1 tablet (10 mg total) by mouth at bedtime. 05/30/2025 active lamoTRIgine (LaMICtal) 25 mg tablet Take 1 tablet (25 mg total) by mouth 1 (one) time each day for 14 days, THEN 2 tablets (50 mg total) 1 (one) time each day. 04/27/2025 active levETIRAcetam (KEPPRA) 500 mg tablet Take 1 tablet (500 mg total) by mouth 2 (two) times a day. 03/22/2025 active metoprolol succinate (TOPROL-XL) 50 mg 24 hr tablet Take 1 tablet (50 mg total) by mouth 1 (one) time each day. Do not crush or chew. 02/28/2025 active budesonide-formoteroL (SYMBICORT) 160-4.5 mcg/actuation inhaler INHALE 2 PUFFS INTO THE LUNGS TWICE A DAY 01/29/2025 active amitriptyline (ELAVIL) 25 mg tablet Take 1 tablet (25 mg total) by mouth 1 (one) time each day. 01/18/2025 active SUMAtriptan (IMITREX) 50 mg tablet Take 1 tablet (50 mg total) by mouth 1 (one) time if needed for migraine (may repeat x1) for up to 1 dose. May repeat dose once in 2 hours if no relief. Do not exceed 2 doses in 24 hours. 01/18/2025 active estradioL (ESTRACE) 2 mg tablet Take 1 tablet (2 mg total) by mouth 1 (one) time each day. 10/17/2024 active albuterol HFA (PROAIR HFA ; PROVENTIL HFA ; VENTOLIN HFA) 90 mcg/actuation inhaler Inhale 2 Puffs into the lungs 4 times daily as needed for Cough, Wheezing or Shortness of Breath (and chest tightness). 11/04/2023 active loratadine (CLARITIN) 10 mg tablet Take 1 tablet (10 mg total) by mouth 1 (one) time each day. 05/10/2023 active cyclobenzaprine (FLEXERIL) 5 mg tablet 04/01/2023 active meloxicam (MOBIC) 15 mg tablet Take 1 tablet (15 mg total) by mouth 1 (one) time each day. 05/11/2022 active B complex tablet Take 1 tablet by mouth 1 (one) time each day. active cholecalciferol (VITAMIN D-3) 1,250 mcg (50,000 unit) capsule Take 1 capsule (50,000 Units total) by mouth 1 (one) time per week. active Allergies Allergen Reaction Severity Comment Documented Date Source Status SULFA (SULFONAMIDE ANTIBIOTICS) 11/26/2022 [facility] active SULFAMETHOXAZOLE- TRIMETHOPRIM 05/19/2018 [facility] active VENLAFAXINE 05/19/2018 [facility] active IODINATED CONTRAST MEDIA ANAPHYLAXIS 04/12/2018 [facility] active ONDANSETRON OTHER B/p elevates 05/20/2017 [facility] a ctive ZOLPIDEM TARTRATE HALLUCINATIONS 01/16/2010 [facility] active CEPHALEXIN MONOHYDRATE RASH 07/10/2008 [facility] active EPINEPHRINE OTHER palpations 07/10/2008 [facility] act sherri LEVOFLOXACIN OTHER seizures 07/10/2008 [facility] acti ve Problems Problem Status Onset Date Problem Type Date of Resolution Source Pure hypercholesterolemia active 2023-09-29 4 [address] [facility] MVP (mitral valve prolapse) active 2008-08-01 0 Problem[address] [facility] Migraine with aura and without status migrainosus, not intractable active EncounterDiagnosisAct [facility] N Seizure disorder (CMS/HCC V24, [facility]/HCC V28) active EncounterDiagnosisAct [facility] Asthma active 2008-08-01 0 ProblemAct [facility] CTS (carpal tunnel syndrome) active 2017-04-30 3 ProblemAct [facility] Anxiety active 2008-08-01 0 ProblemAct [facility] N Multiple thyroid nodules active 2011-08 2 ProblemAct [facility] Cervical spinal stenosis active 2018-01 3 ProblemAct [facility] Snoring active 2017-03-30 2 ProblemAct [facility] Bunion active 4 ProblemAct [facility] PCOS (polycystic ovarian syndrome) active 1 ProblemAct [facility] Insomnia active 2008-08-01 0 ProblemAct [facility] N SALVADOR (stress urinary incontinence, female) active 2022-10-30 9 ProblemAct [facility] Interstitial cystitis active 2016-04-29 3 ProblemAct [facility] Multiple pulmonary nodules determined by computed tomography of lung active 2016-04-29 3 ProblemAct [facility] Stress fracture of left calcaneus active 2 ProblemAct [facility] Allergic rhinitis active 1 ProblemAct [facility] Focal seizures (CMS/HCC V24, CMS/HCC V28) active 2025-05-29 4 ProblemAct [facility] Leukopenia active 2016-09-30 3 Problem[address] [facility] N White matter lesion of central nervous system active EncounterDiagnosisAct [facility] N AAA (abdominal aortic aneurysm) ([facility]/HCC V24) active 2024-09-30 [address] [facility] N White matter abnormality on MRI of brain active 2021-05-30 [address] [facility] N Spasm active EncounterDiagnosisAct CT_JACKELINEA N Immunizations Vaccine Date Source Lot Number Status Influenza trivalent, with pr eservative (Fluzone; Afluria) 6mo and older 09/16/2020 [facility]_ASAEL [id number] completed Influenza Quadravalent, MDCK , 0.5ml, preservative free (Flucelvax) 6mo and older 09/20/2018 [facility] [id number] completed Influenza trivalent, with pr eservative (Fluzone; Afluria) 6mo and older 09/21/2017 [facility] [id number] completed Influenza trivalent, with pr eservative (Fluzone; Afluria) 6mo and older 09/26/2014 [facility] [id number] completed Influenza trivalent, with pr eservative (Fluzone; Afluria) 6mo and older 10/10/2013 [facility] [id number] completed PPD Test 08/05/2012 [facility] [id number] completed H1N1 Inj Preservative Free 09/29/2009 [facility] completed Tetanus Toxoid, Unspecified 10/07/1996 [facility] UNK completed Encounters Encounter Type Encounter Reason Primary Diagnosis Location Date Ambulatory Migraine with aura, not intractable, without status migrainosus Migraine with aura, not intractable, without status migrainosus [facility] [place] 07/03/2025 Inpatient Unspecified convulsions ([facility] V24, [facility] V28) Unspecified convulsions ([facility] V24, [facility] V28) [facility] [place] 06/14/2025 Ambulatory Epilepsy, unspecified, not intractable, without status epilepticus ([facility] V24, [facility] V28) Epilepsy, unspecified, not intractable, without status epilepticus ([facility] V24, [facility] V28) [facility] 05/18/2025 Ambulatory Epilepsy, unspecified, not intractable, without status epilepticus ([facility] V24, [facility] V28) Epilepsy, unspecified, not intractable, without status epilepticus ([facility] V24, [facility] V28) [facility] 04/05/2025 Ambulatory [facility] 04/04/2025 Ambulatory [facility] 04/03/2025 Care Team Organization Name Specialty Phone Email Start Date End Da te [facility] 04/03/2025 [facility] 04/03/2025
--- OUTSIDE RECORDS SUMMARY | 2025-07-12 15:07 | XMS_ITS ---
Author Organization [address] [facility] Address [address] [place] [address] Phone Care Team Providers Care Medical Assistant Dermatology Name Role Phone Real Dasilva MD Primary Care Provider Transitional Care Management Status:Ongoing (Active) Start date:06/15/2025 Enrollment date:06/15/2025 Enrollment reason:Identified using hospital discharge data Case Team Name Relationship Phone Paula Mcfadden LPN Care Manager(Responsible Staf f) Continued Care and Services Coordination
--- OUTSIDE RECORDS SUMMARY | 2025-07-12 15:07 | XMS_ITS | Clinical Summary ---
Author Organization [facility] Address [address] [place] [address] Care Team Providers Care Gun Stocker Name Role Phone Arlette Palmer MD Primary Care Provider Allergies Active Allergy Reactions Criticality Noted Date Comments Zolpidem 05/19/2018 Sulfamethoxazole-Trimethoprim 2017 Cephalexin 05/19/2018 Ciprofibrate 05/19/2018 Venlafaxine 05/19/2018 Epinephrine 05/19/2018 Iodinated Contrast Media 04/12/2018 Levofloxacin 05/19/2018 Sulfa Antibiotics 04/12/2018 Ondansetron 05/19/2018 Medications Medication Sig Dispensed Refills Start Date End Date Status estradiol (ESTRACE) 2 MG tablet Take 2 mg by mouth daily. 12 03/30/2018 Active predniSONE (DELTASONE) 5 mg tablet TAKE DIRECTED ON SHEET 0 03/11/2018 Active meloxicam (MOBIC) 15 MG tablet Take 1 tablet (15 mg total) by mouth daily. 30 tablet 3 04/12/2018 Active HYDROcodone-acetamin ophen (NORCO) 5-325 MG per tablet TAKE 1 OR 2 TABLETS BY MOUTH EVERY 4 HOURS NEEDED FOR PAIN. 0 06/08/2018 Active VITAMIN D PO Take by mouth. 0 Active B Complex-C (VITAMIN B + C COMPLEX PO) Take by mouth. 0 Act sherri Cyanocobalamin (B-12 PO) Take 5,000 mcg by mouth. 0 Active APPLE CIDER VINEGAR PO Take by mouth. 0 Active Turmeric (CURCUMIN 95 PO) Take by mouth. 0 Active Multiple Vitamins-Minerals (ZINC PO) Take by mouth. 0 Active Active Problems Problem Noted Date Diagnosed Date Postop check 07/06/2018 Incomplete tear of left rotator cuff 04/12/2018 Adhesive capsulitis of left shoulder 04/12/2018 Calcific tendinitis of left shoulder 04/12/2018 Family History Medical History Relation Name Comments Cancer Father Diabetes Father Heart disease Father Breast cancer Mother Cancer Mother Multiple myeloma Mother Multiple sclerosis Mother Ovarian cancer Mother Relation Name Status Comments Father Mother Social History Tobacco Use Types Packs/Day Years Used Date Smoking Tobacco: Never Smokeless Tobacco: Never Sex and Gender Information Value Date Recorded Sex Assigned at Not on file Gender Identity Not on file Sexual Orientation Not on file Job Start Date Occupation Industry Not on file Not on file Not on file Last Filed Vital Signs Vital Sign Reading Time Taken Comments Blood Pressure 125/77 08/21/2021 3:41 PM EDT Pulse 63 08/21/2021 3:41 PM EDT Temperature 36.4 C (97.6 F) 08/21/2021 3:41 PM EDT Respiratory Rate - - Oxygen Saturation 98% 08/21/2021 3:41 PM EDT Inhaled Oxygen Concentration - - Weight 75.8 kg (167 lb) 08/21/2021 3:41 PM EDT Height 165.1 cm (5' 5 ) 08/21/2021 3:41 PM EDT Body Mass Index 27.79 08/21/2021 3:41 PM EDT Plan of Treatment Health Maintenance Due Date Last Done Comments Hepatitis B Vaccines (1 of 3 - 3-dose series) 1969 Hepatitis C Screening 1969 COVID-19 Vaccine (#1) 06/02/1970 Depression Screening 1981 BMI Counseling 1987 Preventative Health Evaluation 1987 DTap / Tdap / Td (1 - Tdap) 1988 Cervical Cancer Screening (P ap Smear) 1990 Colon Cancer Screening (Colonoscopy) 2014 Breast Cancer Screening (Mammogram) 2019 Shingrix-Zoster Vaccine (1 of 2) 2019 Influenza Vaccine (#1) 2025 10/10/2013 Pneumococcal Vaccine Aged Out No long er eligible based on patient's age to complete this topic RSV Ped < 20 months Aged Out No longe r eligible based on patient's age to complete this topic Care Teams Gun Stocker Relationship Specialty Start Date End Date Arlette Palmer MD PCP - General Internal Medicine 03/29/18
--- OUTSIDE RECORDS SUMMARY | 2025-07-12 15:07 | XMS_ITS | Patient Health Record ---
Author Organization [facility] Address [address] [place] [address] Care Team Providers Care Field Sales Representative Name Role Phone Estela FORMAN, Sofía Zeng Primary Care Provider Andres Finch Unavailable [phone] Allergies Allergen (clinical drug ingredient) Drug/Non Drug Allergy documented on EMR Reaction Allergy Type Onset Date Status Keflex Unknown Drug Allergy Active Zofran Unknown Drug Allergy Active cortisone Cortisone swelling Drug Allergy Active epinephrine Epinephrine Unknown Drug Allergy Act sherri gabapentin Gabapentin Unknown Drug Allergy Activ e Iodine Anaphylaxis-B sharon Yeast Drug Allergy Active levofloxacin Levofloxacin Unknown Drug Allergy A ctive ondansetron Ondansetron Unknown Drug Allergy Act sherri sulfamethoxazole Sulfamethoxazole Unknown Drug Allergy Active venlafaxine Venlafaxine Unknown Drug Allergy Act sherri zolpidem Zolpidem Unknown Drug Allergy Active Reason For Referral No Information Medications Medication SIG (Take, Route, Fr equency, Duration) Notes Start Date End Date Status Work Note . . . patient is disab led until further notice 07/31/2022 Active Physical Therapy . . . 2-3x/week; Durat ion: 3-4 weeks 08/07/2022 Active Walking Boot/Pneumatic As directed Wear Daily; Duration: Until further notice 07/31/2022 Active Crutches Use Daily; Duration: as needed 07/31/2022 Active Vitamin C Active Vitamin D Active Estradiol 2 MG 1 tablet Orally Once a day; Duration: 30 day(s) Active Meloxicam Active Social History Tobacco Use: Social History Observation Description Date Details (start date - stop date) Never Smoker NA - NA Tobacco Use/Smoking Question Answer Notes Are you a: nonsmoker Additional Findings: Tobacco Non-User Current no n-smoker Alcohol Screen Question Answer Notes Did you have a drink containing alcohol in the p ast year? Yes Points 0 Interpretation Negative Tobacco use other than smoking: Question Answer Notes Are you an other tobacco user? No Problems Problem Type SNOMED Code ICD Code Onset Dates Problem Status W/U Status Risk Notes Problem Complex regional pain syndrome type I of left lower limb (disorder) (7750691127426 01) Complex regional pain syndrome type 1 of left lower extremity (G90.522) Active confirmed Plan Of Treatment Pending Test Test Name Order Date MRI : Ankle, left 07/31/2022 MRI : Foot, left 07/31/2022 Insurance Providers Payer Name Payer Address Payer Phone Subscriber Number Group Number Insured Name Patient Relationship to Insured Coverage Start Date Coverage End Date [facility] [employer] [address] [place] [address] [id number] [address] Caicedo Spouse - patient is the spouse of the insured Medical (General) History Medical History History ICD Code Arthritis asthma Back,Hip,and Knee pain covid-19 Epilepsy Fibromyalgia Sciatica Surgical History Surgery Date(Month/Year) shoulder surgery hysterectomy
== END 2025-07-12 15:08 | disposition home or self-care (01) ==
PROVIDERS: PCP Internal Medicine; Visit Provider Nurse Practitioner Family
DX: R21 Rash and other nonspecific skin eruption (principal)

== ENCOUNTER 2025-07-17 13:36 | Outpatient (AMB) | payer BC, SELFPAY ==
--- NOTE | 2025-07-17 13:50 | AM.OFFWIN_ITS ---
Intake Vital Signs 07/17/25 13:51 Height 5 ft 5 in Weight 180 lb 8 oz BMI 30.0 BP 132/84 Blood Pressure Location Lt brachial Position Sitting Pulse 70 Pulse Source Pulse Oximeter Temp 97.9 F Temp Source Oral Pulse Oximetry (%) 96 Oxygen Delivery Method Room Air Intake Visit Reasons: EP-rash under arms, burning & itchy Patient Tobacco Use Status: Never used Tobacco Merchant Patroller Required: No Is last menstrual period known: No Post menopausal: Yes Patient : No Allergies cephalexin Allergy (Unknown, Verified 07/17/25 13:57) Unknown ciprofloxacin (Cipro) Allergy (Unknown, Verified 07/17/25 13:57) Unknown epinephrine Allergy (Unknown, Verified 07/17/25 13:57) Unknown omeprazole (Prilosec) Allergy (Unknown, Verified 07/17/25 13:57) Unknown ondansetron (Zofran) Allergy (Unknown, Verified 07/17/25 13:57) Unknown venlafaxine Allergy (Unknown, Verified 07/17/25 13:57) Unknown zolpidem Allergy (Unknown, Verified 07/17/25 13:57) Unknown IV contrast Allergy (Unknown, Uncoded 06/16/24 11:46) Unknown levoquin Allergy (Unknown, Uncoded 06/16/24 11:46) Unknown sulfa drugs Allergy (Unknown, Uncoded 06/16/24 11:46) Unknown Do you need a note to return to daycare/school/sports/work: Yes HPI HPI Comments History of Present Illness Details History of Present Illness - The patient is a 54-year-old female pr esenting with skin irritation and systemic symptoms including hypothermia and possible urinary tract infection. - Reports a fungal infection under her a rmpits, worsened after a hospital stay where she was unable to shower. - Experienced widespread itching and red ness after sun exposure, possibly due to a chemical reaction from a different deodorant as she used her 's while on vacation and it was different from hers. - Reports low body temperatures, feeling cold and shaky despite attempts to warm up. - History of migraines; recently hospita lized for seizure evaluation, which was negative. - Undergoing evaluation for multiple scl erosis, with white matter lesions noted on imaging. - Reports memory issues and concentratio n difficulties, present before current symptoms. - Describes a burning throat sensation a nd lack of appetite, with minimal food intake on the day of the visit. - Feels disoriented and dizzy when walki ng, with episodes of running into ayala, feels like intoxication. - Suspects a urinary tract infection due to urgency and pressure, denies discharge. - She does not have a PCP right now. - She denies fever, chills, CP, SOB, abd pain, n/v/d, hematuria, dysuria, vaginal discharge. - Has no joint pain, swelling, rashes, n ew foods, lotions, soaps, detergents, clothes, medications, pets or travel. - Has not been in the sun since July 01. Physical Exam General: Cooperative, healthy appearing, comfortable, no acute distress and well developed Orientation: Patient oriented x3 Limitations: No limitations Head: Normal to inspection Ears: Hearing grossly normal bilaterally Nose: Normal external nose present Face and sinus: Normal facial exam Eyes: Appearance normal, both eyes and all related structures Neck: Normal visual inspection and Yes full ROM Respiratory: Normal respiratory effort and able to speak in complete sentences. Clear to auscultation bilaterally Cardiovascular: Regular rate and rhythm. Normal S1 and S2 GI: Normal to inspection. Soft to palpation and nontender Skin: Redness noted, no rashes or lesions noted Neuro: Patient oriented x3. Sensation is intact. CN II- XII intact. Extremities: Normal to inspection. No edema noted. Haleigh used for clinic note documentation during this visit and patient agreeable. [facility] Medical History (Updated 07/12/25 @ 14:43 by Celine Crowell NP) Rash and nonspecific skin eruption Social History Unable to assess alcohol history related to: Unknown Alcohol intake: current Alcohol intake frequency: holidays/special occasions only Patient Tobacco Use Status: Never used Tobacco Patient : No Review of Systems Const All systems reviewed & are unremarkable except as noted in HPI and below Physical Exam Vital Signs: Last Vital Signs Temp 97.9 F 07/17/25 13:51 Pulse 70 07/17/25 13:51 BP 132/84 07/17/25 13:51 Pulse Ox 96 07/17/25 13:51 Oxygen Delivery Method Room Air 07/17/25 13:51 BMI result Body Mass Index 30.0 Results AMB Urinalysis, Automated UA Leukoctes 0 Josette/uL Last Edit by Leticia Evans MA on 07/17/25 14:43 UA Nitrite Negative Last Edit by Leticia Evans MA on 07/17/25 14:43 UA Urobilinogen 0.2 mg/dL Last Edit by Leticia Evans MA on 07/17/25 14:43 UA Protein 0 mg/dL Last Edit by Leticia Evans MA on 07/17/25 14:43 UA pH 6.0 Last Edit by Leticia Evans MA on 07/17/25 14:43 UA Blood 0 Ed/uL Last Edit by Leticia Evans MA on 07/17/25 14:43 UA Specific [place] 1.005 Last Edit by Leticia Evans MA on 07/17/25 14:43 UA Ketone Negative Last Edit by Leticia Evans MA on 07/17/25 14:43 UA Bilirubin 0 mg/dL Last Edit by Leticia Evans MA on 07/17/25 14:43 UA Glucose 0 mg/dL Last Edit by Leticia Evans MA on 07/17/25 14:43 Results Reviewed Results Reviewed: Laboratory Last Values Urine pH (Auto) 6.0 07/17/25 14:40 Specific [place] (Auto) 1.005 07/17/25 14:40 Urine Protein (Auto) 0 mg/dL 07/17/25 14:40 Glucose (UA)(Auto) 0 mg/dL 07/17/25 14:40 Urine Ketones (Auto) Negative 07/17/25 14:40 Urine Blood (Auto) 0 Ed/uL 07/17/25 14:40 Urine Nitrite (Auto) Negative 07/17/25 14:40 Urine Bilirubin (Auto) 0 mg/dL 07/17/25 14:40 Urine Urobilinogen (Auto) 0.2 mg/dL 07/17/25 14:40 Leukocyte Esterase (Auto) 0 Josette/uL 07/17/25 14:40 Assessment & Plan Assessment & Plan (1) Burning sensation of skin: Code(s): R20.8 - Other disturbances of skin sensation Plan Most likely UTI vs viral vs neuropathy vs fungal infection vs vitamin deficiency UA in the office was negative Plan - Conduct urinalysis to assess for urinary tract infection. - Perform comprehensive blood tests including thyroid function and vitamin levels to investigate systemic symptoms. - Provide referral to new primary care physician for continued management and follow-up. Orders: Orders AMB Urinalysis Automated Today Z13.9 - Encounter for screening, unspecified Comprehensive Met. Panel Today R20.8 - Other disturbances of skin sensation Vitamin B12 and Folate Today R20.8 - Other disturbances of skin sensation Magnesium Today R20.8 - Other disturbances of skin sensation Vitamin D 1,25 dihydroxy Today R20.8 - Other disturbances of skin sensation Complete Blood Count Auto Diff Today R20.8 - Other disturbances of skin sensation TSH reflex Free T4 Today R20.8 - Other disturbances of skin sensation Phosphorus Today R20.8 - Other disturbances of skin sensation Coding Level of Care Code Est Pt Level 4 (12471) Diagnoses Burning sensation of skin R20.8
[2025-07-17 13:51] VITALS: BP 132/84; PULSE 70; TEMP 36.6; O2SAT 96
--- OUTSIDE RECORDS SUMMARY | 2025-07-17 14:50 | XMS_ITS | Clinical Summary ---
Author Organization [facility] Address [address] [place] [address] Care Team Providers Care Web Services Developer Name Role Phone Arlette Palmer MD Primary Care Provider [phone] Allergies Active Allergy Reactions Criticality Noted Date [...] age to complete this topic Care Teams Web Services Developer Relationship Specialty Start Date End Date Arlette Palmer MD PCP - General Internal Medicine 03/29/18
--- OUTSIDE RECORDS SUMMARY | 2025-07-17 14:50 | XMS_ITS | Clinical Summary ---
Author Organization [facility] Address [address] [place] [address] Care Team Providers Care Oral Surgery Technician Name Role Phone Xochitl Palmer MD Primary Care Provider [phone] Social History Tobacco Use Types Packs/Day Years [...] (1 - 2023- season) 2024 Care Teams Oral Surgery Technician Relationship Specialty Start Date End Date Xochitl Palmer MD [address] [place] [address] PCP - General
--- OUTSIDE RECORDS SUMMARY | 2025-07-17 14:50 | XMS_ITS | Patient Health Record ---
Author Organization [facility] Address [address] [facility] [place] [address] Care Team Providers Care Medical Van Driver Name Role Phone Estela FORMAN, Sofía Zeng Primary Care Provider Andres Finch Unavailable [phone] Allergies Allergen (clinical drug ingredient) Drug/Non Drug [...] Notes Problem Complex regional pain syndrome type 1 of left lower extremity (G90.522) Active confirmed Plan Of Treatment Pending Test Test Name Order Date MRI : Ankle, left 07/31/2022 MRI : Foot, left 07/31/2022 Insurance Providers Payer Name Payer Address Payer Phone Subscriber Number Group Number Insured Name Patient Relationship to Insured Coverage Start Date Coverage End Date [facility] [address] [place] [address] [id number] [address] A[address] Caicedo Spouse - patient is the spouse of the insured Medical (General) History Medical History History ICD Code Arthritis asthma Back,Hip,and Knee pain covid-19 Epilepsy Fibromyalgia Sciatica Surgical History Surgery Date(Month/Year) shoulder surgery hysterectomy
--- OUTSIDE RECORDS SUMMARY | 2025-07-17 14:50 | XMS_ITS ---
Author Organization [facility] Address [address] [place] [address] Phone Care Team Providers Care Veterinarian Small Animal Name Role Phone Real Dasilva MD Primary Care Provider Transitional Care Management Status:Ongoing (Active) Start date:06/15/2025 Enrollment date:06/15/2025 Enrollment reason:Identified using hospital discharge data Case Team Name Relationship Phone Paula Mcfadden LPN Care Manager(Responsible Staf f) Continued Care and Services Coordination
== END 2025-07-17 15:12 | disposition home or self-care (01) ==
PROVIDERS: PCP Internal Medicine; Visit Provider Physician Assistant Medical
DX: Z13.9 Encounter for screening, unspecified (principal); R20.8 Other disturbances of skin sensation

== ENCOUNTER 2025-07-17 13:36 | Outpatient (REF) | payer BC, SELFPAY ==
[2025-07-17 16:13] LABS: MANUAL DIFF FLAG NO
[2025-07-17 16:33] LABS: Hematocrit 41.5 % (37.0-47.0); Hemoglobin 13.5 g/dl (12.0-16.0); Imm Gran Abs Auto 0.01 X10*3/uL (0.00-0.03); Imm Gran Pct Auto 0.2 % (0.0-0.4); Lymphocytes Absolute Auto 1.2 X10*3/uL (1.2-4.9); Mean Corpuscular HGB Conc 32.5 g/dl (31.0-35.0); Mean Corpuscular Hemoglobin 29.5 pg (27.0-33.0); Mean Corpuscular Volume 90.6 fL (80.0-98.0); NRBC Abs Auto 0.000 X10*3/uL (0.0-0.012); NRBC Pct Auto 0.0 /100WBC (0.0-0.2); Platelet Count 297 X10*3/uL (160-400); Red Blood Count 4.58 X10*6/uL (4.20-5.50); White Blood Count 5.5 X10*3/uL (4.8-10.8)
[2025-07-17 17:02] LABS: Alanine Aminotransferase 23 U/L (0-31); Albumin Level 4.5 g/dL (3.5-5.0); Alkaline Phosphatase 44 U/L (39-117); Anion Gap 11 (12-20); Aspartate Amino Transferase 24 U/L (5-31); Blood Urea Nitrogen 11 mg/dL (9-16); Calcium 9.0 mg/dL (8.4-10.2); Carbon Dioxide 25 mmol/L (22-29); Chloride 107 mmol/L (96-108); Estimated Glomerular Filt Rate > 60; Magnesium 2.1 mg/dL (1.6-2.6); Potassium 4.0 mmol/L (3.3-5.1); Sodium 139 mmol/L (135-145); Total Protein 7.2 g/dL (6.5-8.0)
[2025-07-17 17:20] LABS: Folate 14.4 ng/mL (> or = 4.0); Vitamin B12 617 pg/mL (200-900)
[2025-07-22 16:38] LABS: VITAMIN D (1,25 OH) D3 75 pg/mL; Vit D (1,25-Dihydroxy) Total 75 pg/mL (18-72); Vitamin D (1,25 OH) D2 <8 pg/mL
== END 2025-07-17 13:37 | disposition home or self-care (01) ==
LOC: HO.HMGCLDS 13:36
PROVIDERS: PCP Internal Medicine; Visit Provider Physician Assistant Medical
DX: R20.8 Other disturbances of skin sensation (principal); R21 Rash and other nonspecific skin eruption; Z13.89 Encounter for screening for other disorder
CPT/HCPCS: 36415; 80053; 81003; 82607; 82652; 82746; 83735; 84100; 84443; 85025

== ENCOUNTER 2025-07-21 11:04 | Outpatient (AMB) | payer BC, SELFPAY ==
--- OUTSIDE RECORDS SUMMARY | 2025-07-21 11:06 | XMS_ITS | Clinical Summary ---
Author Organization [facility] Address [address] [place] [address] Care Team Providers Care Group Leader Semiconductor Processing Name Role Phone Xochitl Palmer MD Primary Care Provider [phone] Social History Tobacco Use Types Packs/Day Years [...] of 2) 2019 COVID-19 Vaccine (1 - 2023-25 season) 2024 Care Teams Group Leader Semiconductor Processing Relationship Specialty Start Date End Date Xochitl Palmer MD [address] [place] [address] PCP - General
--- OUTSIDE RECORDS SUMMARY | 2025-07-21 11:06 | XMS_ITS | Clinical Summary ---
Author Organization [facility] Address [address] [place] [address] Care Team Providers Care Engine Assembly Supervisor Name Role Phone Arlette Palmer MD Primary Care Provider [phone] Allergies Active Allergy Reactions Criticality Noted Date [...] age to complete this topic Care Teams Engine Assembly Supervisor Relationship Specialty Start Date End Date Arlette Palmer MD PCP - General Internal Medicine 03/29/18
--- OUTSIDE RECORDS SUMMARY | 2025-07-21 11:07 | XMS_ITS | Patient Health Record ---
Author Organization [facility] Address [address] [place] [address] Care Team Providers Care Water Resources Business Segment Leader Name Role Phone Estela FORMAN, Sofía Zeng Primary Care Provider Andres Finhc Unavailable [phone] Allergies Allergen (clinical drug ingredient) Drug/Non Drug [...] Insured Coverage Start Date Coverage End Date [facility] [address] [place] [address] [id number] [address] Caicedo Spouse - patient is the spouse of the insured Medical (General) History Medical History History ICD Code Arthritis asthma Back,Hip,and Knee pain covid-19 Epilepsy Fibromyalgia Sciatica Surgical History Surgery Date(Month/Year) shoulder surgery hysterectomy
--- NOTE | 2025-07-21 11:46 | AM.OFFWIN_ITS ---
Intake Vital Signs 07/21/25 11:48 Height 5 ft 5 in Weight 179 lb BMI 29.8 BP 132/80 Blood Pressure Location Lt brachial Position Sitting Pulse 73 Pulse Source Pulse Oximeter Temp 97.9 F Temp Source Oral Pulse Oximetry (%) 97 Intake Visit Reasons: EP-Rash Patient Tobacco Use Status: Never used Tobacco Allergies cephalexin Allergy (Unknown, Verified 07/21/25 11:51) Unknown ciprofloxacin (Cipro) Allergy (Unknown, Verified 07/21/25 11:51) Unknown epinephrine Allergy (Unknown, Verified 07/21/25 11:51) Unknown omeprazole (Prilosec) Allergy (Unknown, Verified 07/21/25 11:51) Unknown ondansetron (Zofran) Allergy (Unknown, Verified 07/21/25 11:51) Unknown venlafaxine Allergy (Unknown, Verified 07/21/25 11:51) Unknown zolpidem Allergy (Unknown, Verified 07/21/25 11:51) Unknown IV contrast Allergy (Unknown, Uncoded 06/16/24 11:46) Unknown levoquin Allergy (Unknown, Uncoded 06/16/24 11:46) Unknown sulfa drugs Allergy (Unknown, Uncoded 06/16/24 11:46) Unknown Do you need a note to return to daycare/school/sports/work: No HPI EP-Rash HPI Details Patient is a 54-year-old female with history of neurological disease being worked up currently for diagnosis, and pending lumbar puncture in a few days Has been dealing with rash symptoms that started bilateral axillary areas, and diagnosed with fungal infection that cleared with antifungal topical to the area However, having pruritic erythematous rash no bilateral extremities, trunk and is associated with picking sensations intermittently, and hot sensations No shortness of breath, chest pain, tongue or mouth or throat swelling, difficulty breathing, weakness or dizziness, joint swelling, lymphadenopathy, hives or other lesions, or other significant associated symptoms Has been worked up on a least 2 occasions prior to this, and nutrition deficiencies investigated and unremarkable per patient [facility] Medical History Rash and nonspecific skin eruption Social History Unable to assess alcohol history related to: Unknown Alcohol intake: current Alcohol intake frequency: holidays/special occasions only Patient Tobacco Use Status: Never used Tobacco Review of Systems Const All systems reviewed & are unremarkable except as noted in HPI and below Physical Exam Exam Exam: Patient does have an anxious affect, but otherwise normal appearance and behavior, and in no apparent distress Skin does have erythematous appearance to the bilateral extremities with a mildly inflammatory texture, and is mildly excoriated to the upper back, however no distinct lesions Vital Signs: Last Vital Signs Temp 97.9 F 07/21/25 11:48 Pulse 73 07/21/25 11:48 BP 132/80 07/21/25 11:48 Pulse Ox 97 07/21/25 11:48 BMI result Body Mass Index 29.8 Assessment & Plan Assessment & Plan (1) Rash and nonspecific skin eruption: Code(s): R21 - Rash and other nonspecific skin eruption Plan: Suspect tinea versicolor, and advised ketoconazole shampoo due to extent of areas affected If persist after 1st 2 applications of antifungal, give short course low-dose prednisone to trial, as differential includes dermatitis and symptoms started after eating lobster Discussed switching to hypoallergenic products, starting diet elimination, and allergy/Dermatology workup as needed further per PCP Medications: New ketoconazole 2% Apply to affected area(s) of damp skin, lather, leave on 5 minutes, and rinse. One application is usually sufficient but can do once-daily application for 3 consecutive days. Then use every 3 days until symptoms resolve (up to 3 weeks) 1 appl topical .QD 120 mL 0RF tinea versicolor prednisone 10 mg PO DAILY 5 tabs 0RF 5 days Coding Level of Care Code Est Pt Level 4 (69164) Diagnoses Rash and nonspecific skin eruption R21
[2025-07-21 11:48] VITALS: BP 132/80; PULSE 73; TEMP 36.6; O2SAT 97; BMI 29.8
== END 2025-07-21 13:18 | disposition home or self-care (01) ==
LOC: HO.HMCWIC 11:04
PROVIDERS: PCP Internal Medicine; Visit Provider Physician Assistant Medical
DX: R21 Rash and other nonspecific skin eruption (principal)

== ENCOUNTER 2025-08-24 09:22 | Outpatient (REF) | payer BC, SELFPAY ==
--- NOTE | ~2025-08-24 | MM_ITS ---
EXAMINATION: MM SCREENING DIGITAL BREAST TOMOSYNTHESIS, BILATERAL CLINICAL INFORMATION: Screening. Asymptomatic. History of benign left needle core biopsies in 2012 and 2013. COMPARISON: August 15, 2024 and June 14, 2023 TECHNIQUE: Digital breast tomosynthesis is performed in mediolateral oblique and craniocaudal views along with computer-aided detection (CAD). Synthesized 2D images are generated from the tomosynthesis. FINDINGS: BREAST COMPOSITION: The breasts are heterogeneously dense, which may obscure small masses. RIGHT BREAST: No significant masses, suspicious calcifications or other abnormalities are seen. LEFT BREAST: 2 biopsy clips from previous needle core biopsies. No significant masses, suspicious calcifications or other abnormalities are seen. MM/MM tomosynthesis screening BI IMPRESSION: BILATERAL BREASTS: Benign, no mammographic evidence of malignancy. Normal interval follow-up is recommended in 12 months. ASSESSMENT: BI-RADS: Category 2: Benign RECOMMENDATION: Routine annual mammography screening. FOLLOW-UP: 1 year F/U This examination should not preclude the clinical evaluation of a suspicious palpable abnormality. This patient's information was entered into a reminder system with a target due date for their next mammogram. Electronically signed by: Dolores Patel MD 08/24/2025 10:34 AM EDT
--- OUTSIDE RECORDS SUMMARY | 2025-08-24 10:09 | XMS_ITS ---
Author Organization [facility] Address [address] [place] [address] Phone Care Team Providers Care Linotyper Name Role Phone Real Dasilva MD Primary Care Provider Transitional Care Management Status:Ongoing (Active) Start date:06/15/2025 Enrollment date:06/15/2025 Enrollment reason:Identified using hospital discharge data Case Team Name Relationship Phone Paula Mcfadden LPN Care Manager(Responsible Staf f) Continued Care and Services Coordination
--- OUTSIDE RECORDS SUMMARY | 2025-08-24 10:09 | XMS_ITS | Clinical Summary ---
Author Organization [facility] Address [address] [place] [address] Care Team Providers Care Curator Horticultural Museum Name Role Phone Arlette Palmer MD Primary Care Provider [phone] Allergies Active Allergy Reactions Criticality Noted Date [...] age to complete this topic Care Teams Curator Horticultural Museum Relationship Specialty Start Date End Date Arlette Palmer MD PCP - General Internal Medicine 03/29/18
--- OUTSIDE RECORDS SUMMARY | 2025-08-24 10:09 | XMS_ITS | Patient Health Record ---
Author [facility] Address [address] [facility] [place] [address] Care Team Providers Care Cavalry Scout Name Role Phone Estela FORMAN, Sofía Zeng Primary Care Provider Andres Finch Unavailable [phone] Allergies Allergen (clinical drug ingredient) Drug/Non Drug [...] type I of left lower limb (disorder) ([id number]) Complex regional pain syndrome type 1 of left lower extremity (G90.522) Active confirmed Plan Of Treatment Pending Test Test Name Order Date MRI : Ankle, left 07/31/2022 MRI : Foot, left 07/31/2022 Insurance Providers Payer Name Payer Address Payer Phone Subscriber Number Group Number Insured Name Patient Relationship to Insured Coverage Start Date Coverage End Date [facility] [employer] [address] [place] [address] [id number] [address]me[address] Caicedo Spouse - patient is the spouse of the insured Medical (General) History Medical History History ICD Code Arthritis asthma Back,Hip,and Knee pain covid-19 Epilepsy Fibromyalgia Sciatica Surgical History Surgery Date(Month/Year) shoulder surgery hysterectomy
--- OUTSIDE RECORDS SUMMARY | 2025-08-24 10:09 | XMS_ITS | Clinical Summary ---
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 however, since the corresponding serum contains the same oligoclonal bands, this does not indicate CSF-specific oligoclonal banding, and this is considered a negative study. Test performed at [facility], [address] [place] [address] Alejandra Mendes MD, PhD - [employer] Blood Venous blood specimen / Unknown Venipuncture / Unknown 07/25/2025 7:52 AM EDT 07/25/2025 7:58 AM EDT Huy Sanchez MD LAB BLOOD ORDERABLES Fin al Result [facility] [address] [place] [address] * External clinical lab (07/17/2025) Only the most recent of2 resultswithin the time period is included. Provider [facility] BLOOD ORDERABLES Fin al Result * EEG awake and asleep (06/15/2025 12:12 PM EDT) Narrative Mary Carmen Flores, Kaleb Salgado MD - 06/15/2025 12:12 PM EDT Kaleb Flores MD 06/16/2025 3:40 PM Epilepsy Monitoring Unit (EMU) continuous Video Electroencephalography -final report EMU monitoring day: 5 Study start date, time: 06/15/2025; 7 AM Study end date, time: 06/15/2025; 11 AM Total duration: 4 hours Clinical Information History: Loree Caicedo is a 54 y.o. female Epilepsy monitoring unit admission indication: Captured episode of feeling like she was on a roller coaster with stomach drop feeling, visual disturbances, evaluation of nocturnal and background activity, and optimization of medications. She was on phenobarbital and Tegretol for 9 years during childhood and is now taking Lamictal. Sedation: Antiseizure medication: Medications: No current facility-administered medications for this encounter. Current Outpatient Medications: albuterol HFA (PROAIR HFA ; PROVENTIL HFA ; VENTOLIN HFA) 90 mcg/actuation inhaler, Inhale 2 Puffs into the lungs 4 times daily as needed for Cough, Wheezing or Shortness of Breath (and chest tightness)., Disp: , Rfl: B complex tablet, Take 1 tablet by mouth 1 (one) time each day., Disp: , Rfl: baclofen (LIORESAL) 10 mg tablet, Take 1 tablet (10 mg total) by mouth at bedtime., Disp: 30 each, Rfl: 0 budesonide-formoteroL (SYMBICORT) 160-4.5 mcg/actuation inhaler, INHALE 2 PUFFS INTO THE LUNGS TWICE A DAY, Disp: 30.6 each, Rfl: 1 estradioL (ESTRACE) 2 mg tablet, Take 1 tablet (2 mg total) by mouth 1 (one) time each day., Disp: 90 tablet, Rfl: 3 loratadine (CLARITIN) 10 mg tablet, Take 1 tablet (10 mg total) by mouth 1 (one) time each day., Disp: , Rfl: meloxicam (MOBIC) 15 mg tablet, Take 1 tablet (15 mg total) by mouth 1 (one) time each day., Disp: , Rfl: metoprolol succinate (TOPROL-XL) 50 mg 24 hr tablet, Take 1 tablet (50 mg total) by mouth 1 (one) time each day. Do not crush or chew., Disp: 90 each, Rfl: 3 SUMAtriptan (IMITREX) 50 mg tablet, Take 1 tablet (50 mg total) by mouth 1 (one) time if needed for migraine (may repeat x1) for up to 1 dose. May repeat dose once in 2 hours if no relief. Do not exceed 2 doses in 24 hours., Disp: 9 tablet, Rfl: 3 Recording Techniques Instrumentation: A digital EEG was performed using the standard international 10-20 electrode placement and single lead EKG electrode with a sampling rate of 200 samples per second/per channel, at impedance levels less than 10 K Ohms. Montages: Standard 10-20 system montages Type of Study: Continuous video EEG monitoring Conditions of Recording: Awake - drowsy - sleep EEG monitoring: Continuous remote monitoring service used Results Background: The record was well organized. The waking EEG was characterized by a symmetrical, well-formed and modulated 9 Hz posterior dominant rhythm, with medium amplitude (20-70 uV) and reactive to eye opening. The background over the rest of the head consisted of a mixture of alpha and beta frequencies. Sleep: During drowsiness, the alpha rhythm attenuated and diffuse background slowing appeared. Stage 2 sleep was characterized by the appearance of sleep spindles and vertex waves. Focal slowing: There were no focal abnormalities, persistent asymmetries Epileptiform discharges: None Activation Procedures: Hyperventilation:Hyperventilation for 3 minutes produced generalized slowing Photic Simulation: did not alter the record. Clinical events: None reported Heart Rate: Normal sinus rhythm Classification of the findings: 1. Photoparoxysmal response - Waltz type I -benign Impression This is a normal continuous video EEG recording in the kjkcy-idoiik-mnydnr states. There were no focal abnormalities, persistent asymmetries, or epileptiform discharges/ seizures. - Target event captured on 06/13/2025 around 12:05 PM, during intermittent photic stimulation at 5 Hz and 9 Hz:, a photoparoxysmal response (PPR) was elicited. This response was noted to be Type 1, characterized by occipital maximal spiky discharges with biphasic slow waves, but time-locked to the flash stimulus, with no seizure activity, patient reported mildly dizzy, uneasiness - No spontaneous epileptiform discharges were seen outside of photic stimulation. Strong suspicion for benign photoparoxysmal response, given EEG findings, patient with history of childhood epilepsy, but no seizures in the last 20 years off of antiseizure medication These findings were discussed with patient at length. Advised to avoid triggers such as strobe lights, videogames This video EEG record was continuously monitored by remote EEG monitoring service. Kaleb Flores MD Epileptologist/ staff neurologist [facility] us Ursula JACOBSON NEUROLOGY ORDERABLES Edited Result - Final * Continuous EEG (06/15/2025 6:14 AM EDT) Narrative [facility] - 06/15/2025 12:12 PM EDT Kaleb Flores MD 06/16/2025 3:40 PM Epilepsy Monitoring Unit (EMU) continuous Video Electroencephalography -final report EMU monitoring day: 5 Study start date, time: 06/15/2025; 7 AM Study end date, time: 06/15/2025; 11 AM Total duration: 4 hours Clinical Information History: Loree Caicedo is a 54 y.o. female Epilepsy monitoring unit admission indication: Captured episode of feeling like she was on a roller coaster with stomach drop feeling, visual disturbances, evaluation of nocturnal and background activity, and optimization of medications. She was on phenobarbital and Tegretol for 9 years during childhood and is now taking Lamictal. Sedation: Antiseizure medication: Medications: No current facility-administered medications for this encounter. Current Outpatient Medications: albuterol HFA (PROAIR HFA ; PROVENTIL HFA ; VENTOLIN HFA) 90 mcg/actuation inhaler, Inhale 2 Puffs into the lungs 4 times daily as needed for Cough, Wheezing or Shortness of Breath (and chest tightness)., Disp: , Rfl: B complex tablet, Take 1 tablet by mouth 1 (one) time each day., Disp: , Rfl: baclofen (LIORESAL) 10 mg tablet, Take 1 tablet (10 mg total) by mouth at bedtime., Disp: 30 each, Rfl: 0 budesonide-formoteroL (SYMBICORT) 160-4.5 mcg/actuation inhaler, INHALE 2 PUFFS INTO THE LUNGS TWICE A DAY, Disp: 30.6 each, Rfl: 1 estradioL (ESTRACE) 2 mg tablet, Take 1 tablet (2 mg total) by mouth 1 (one) time each day., Disp: 90 tablet, Rfl: 3 loratadine (CLARITIN) 10 mg tablet, Take 1 tablet (10 mg total) by mouth 1 (one) time each day., Disp: , Rfl: meloxicam (MOBIC) 15 mg tablet, Take 1 tablet (15 mg total) by mouth 1 (one) time each day., Disp: , Rfl: metoprolol succinate (TOPROL-XL) 50 mg 24 hr tablet, Take 1 tablet (50 mg total) by mouth 1 (one) time each day. Do not crush or chew., Disp: 90 each, Rfl: 3 SUMAtriptan (IMITREX) 50 mg tablet, Take 1 tablet (50 mg total) by mouth 1 (one) time if needed for migraine (may repeat x1) for up to 1 dose. May repeat dose once in 2 hours if no relief. Do not exceed 2 doses in 24 hours., Disp: 9 tablet, Rfl: 3 Recording Techniques Instrumentation: A digital EEG was performed using the standard international 10-20 electrode placement and single lead EKG electrode with a sampling rate of 200 samples per second/per channel, at impedance levels less than 10 K Ohms. Montages: Standard 10-20 system montages Type of Study: Continuous video EEG monitoring Conditions of Recording: Awake - drowsy - sleep EEG monitoring: Continuous remote monitoring service used Results Background: The record was well organized. The waking EEG was characterized by a symmetrical, well-formed and modulated 9 Hz posterior dominant rhythm, with medium amplitude (20-70 uV) and reactive to eye opening. The background over the rest of the head consisted of a mixture of alpha and beta frequencies. Sleep: During drowsiness, the alpha rhythm attenuated and diffuse background slowing appeared. Stage 2 sleep was characterized by the appearance of sleep spindles and vertex waves. Focal slowing: There were no focal abnormalities, persistent asymmetries Epileptiform discharges: None Activation Procedures: Hyperventilation:Hyperventilation for 3 minutes produced generalized slowing Photic Simulation: did not alter the record. Clinical events: None reported Heart Rate: Normal sinus rhythm Classification of the findings: 1. Photoparoxysmal response - Waltz type I -benign Impression This is a normal continuous video EEG recording in the rkzfw-gzeols-wccbsm states. There were no focal abnormalities, persistent asymmetries, or epileptiform discharges/ seizures. - Target event captured on 06/13/2025 around 12:05 PM, during intermittent photic stimulation at 5 Hz and 9 Hz:, a photoparoxysmal response (PPR) was elicited. This response was noted to be Type 1, characterized by occipital maximal spiky discharges with biphasic slow waves, but time-locked to the flash stimulus, with no seizure activity, patient reported mildly dizzy, uneasiness - No spontaneous epileptiform discharges were seen outside of photic stimulation. Strong suspicion for benign photoparoxysmal response, given EEG findings, patient with history of childhood epilepsy, but no seizures in the last 20 years off of antiseizure medication These findings were discussed with patient at length. Advised to avoid triggers such as strobe lights, videogames This video EEG record was continuously monitored by remote EEG monitoring service. Kaleb Flores MD Epileptologist/ staff neurologist [facility] us Yen Locke Ruy FIRE APPARATUS ENGINEER NEUROLOGY ORDERABLES Edit ed Result - Final [facility] * Continuous EEG (06/15/2025 6:13 AM EDT) Narrative [facility] - 06/15/2025 12:12 PM EDT Kaleb Flores MD 06/16/2025 3:40 PM Epilepsy Monitoring Unit (EMU) continuous Video Electroencephalography -final report EMU monitoring day: 5 Study start date, time: 06/15/2025; 7 AM Study end date, time: 06/15/2025; 11 AM Total duration: 4 hours Clinical Information History: Loree Caicedo is a 54 y.o. female Epilepsy monitoring unit admission indication: Captured episode of feeling like she was on a roller coaster with stomach drop feeling, visual disturbances, evaluation of nocturnal and background activity, and optimization of medications. She was on phenobarbital and Tegretol for 9 years during childhood and is now taking Lamictal. Sedation: Antiseizure medication: Medications: No current facility-administered medications for this encounter. Current Outpatient Medications: albuterol HFA (PROAIR HFA ; PROVENTIL HFA ; VENTOLIN HFA) 90 mcg/actuation inhaler, Inhale 2 Puffs into the lungs 4 times daily as needed for Cough, Wheezing or Shortness of Breath (and chest tightness)., Disp: , Rfl: B complex tablet, Take 1 tablet by mouth 1 (one) time each day., Disp: , Rfl: baclofen (LIORESAL) 10 mg tablet, Take 1 tablet (10 mg total) by mouth at bedtime., Disp: 30 each, Rfl: 0 budesonide-formoteroL (SYMBICORT) 160-4.5 mcg/actuation inhaler, INHALE 2 PUFFS INTO THE LUNGS TWICE A DAY, Disp: 30.6 each, Rfl: 1 estradioL (ESTRACE) 2 mg tablet, Take 1 tablet (2 mg total) by mouth 1 (one) time each day., Disp: 90 tablet, Rfl: 3 loratadine (CLARITIN) 10 mg tablet, Take 1 tablet (10 mg total) by mouth 1 (one) time each day., Disp: , Rfl: meloxicam (MOBIC) 15 mg tablet, Take 1 tablet (15 mg total) by mouth 1 (one) time each day., Disp: , Rfl: metoprolol succinate (TOPROL-XL) 50 mg 24 hr tablet, Take 1 tablet (50 mg total) by mouth 1 (one) time each day. Do not crush or chew., Disp: 90 each, Rfl: 3 SUMAtriptan (IMITREX) 50 mg tablet, Take 1 tablet (50 mg total) by mouth 1 (one) time if needed for migraine (may repeat x1) for up to 1 dose. May repeat dose once in 2 hours if no relief. Do not exceed 2 doses in 24 hours., Disp: 9 tablet, Rfl: 3 Recording Techniques Instrumentation: A digital EEG was performed using the standard international 10-20 electrode placement and single lead EKG electrode with a sampling rate of 200 samples per second/per channel, at impedance levels less than 10 K Ohms. Montages: Standard 10-20 system montages Type of Study: Continuous video EEG monitoring Conditions of Recording: Awake - drowsy - sleep EEG monitoring: Continuous remote monitoring service used Results Background: The record was well organized. The waking EEG was characterized by a symmetrical, well-formed and modulated 9 Hz posterior dominant rhythm, with medium amplitude (20-70 uV) and reactive to eye opening. The background over the rest of the head consisted of a mixture of alpha and beta frequencies. Sleep: During drowsiness, the alpha rhythm attenuated and diffuse background slowing appeared. Stage 2 sleep was characterized by the appearance of sleep spindles and vertex waves. Focal slowing: There were no focal abnormalities, persistent asymmetries Epileptiform discharges: None Activation Procedures: Hyperventilation:Hyperventilation for 3 minutes produced generalized slowing Photic Simulation: did not alter the record. Clinical events: None reported Heart Rate: Normal sinus rhythm Classification of the findings: 1. Photoparoxysmal response - Waltz type I -benign Impression This is a normal continuous video EEG recording in the qiqwo-ocwkxx-iwpuof states. There were no focal abnormalities, persistent asymmetries, or epileptiform discharges/ seizures. - Target event captured on 06/13/2025 around 12:05 PM, during intermittent photic stimulation at 5 Hz and 9 Hz:, a photoparoxysmal response (PPR) was elicited. This response was noted to be Type 1, characterized by occipital maximal spiky discharges with biphasic slow waves, but time-locked to the flash stimulus, with no seizure activity, patient reported mildly dizzy, uneasiness - No spontaneous epileptiform discharges were seen outside of photic stimulation. Strong suspicion for benign photoparoxysmal response, given EEG findings, patient with history of childhood epilepsy, but no seizures in the last 20 years off of antiseizure medication These findings were discussed with patient at length. Advised to avoid triggers such as strobe lights, videogames This video EEG record was continuously monitored by remote EEG monitoring service. Kaleb Flores MD Epileptologist/ staff neurologist [facility] us Yen Redmond NP NEUROLOGY ORDERABLES Edit ed Result - Final [facility] * Continuous EEG (06/14/2025 7:33 AM EDT) Narrative [facility] - 06/14/2025 6:59 PM EDT Kaleb Flores MD 06/14/2025 7:00 PM Epilepsy Monitoring Unit (EMU) continuous Video Electroencephalography - Interim report EMU monitoring day: 4 Study start date, time: 06/14/2025; 7 AM Study end date, time: 06/15/2025; 7 AM Total duration: 24 hours Clinical Information History: Loree Caicedo is a 54 y.o. female Epilepsy monitoring unit admission indication: Captured episode of feeling like she was on a roller coaster with stomach drop feeling, visual disturbances, evaluation of nocturnal and background activity, and optimization of medications. She was on phenobarbital and Tegretol for 9 years during childhood and is now taking Lamictal. Sedation: Antiseizure medication: Medications: Current Facility-Administered Medications: acetaminophen (TYLENOL) tablet 650 mg, 650 mg, oral, q6h PRN, Yen Redmond NP, 650 mg at 06/13/25 1420 albuterol 1.25 mg/3 mL nebulizer solution 1.25 mg, 1.25 mg, nebulization, q6h PRN, Yen Redmond NP baclofen (LIORESAL) tablet 10 mg, 10 mg, oral, q PM, Yen Redmond NP, 10 mg at 06/13/25 1810 diphenhydrAMINE (BENADRYL) capsule 25 mg, 25 mg, oral, Nightly PRN, Yen Redmond NP, 25 mg at 06/13/252057 estradioL (ESTRACE) tablet 2 mg, 2 mg, oral, Daily, Yen Redmond NP, 2 mg at 06/14/25 08 ibuprofen (ADVIL,MOTRIN) tablet 400 mg, 400 mg, oral, q6h PRN, Yen Redmond NP loperamide (IMODIUM) capsule 2 mg, 2 mg, oral, 4x daily PRN, Yen Redmond NP, 2 mg at 06/12/250 loratadine (CLARITIN) tablet 10 mg, 10 mg, oral, Daily, Yen Redmond NP, 10 mg at 06/14/25 08 LORazepam (ATIVAN) injection 1 mg, 1 mg, intravenous, See admin instructions, Yen Redmond NP meloxicam (MOBIC) tablet 15 mg, 15 mg, oral, Daily, Yen Redmond NP, 15 mg at 06/14/25 08 metoclopramide (REGLAN) tablet 5 mg, 5 mg, oral, BID PRN, Yen Redmond NP metoprolol succinate (TOPROL-XL) 24 Hour tablet 50 mg, 50 mg, oral, Daily, Yen Redmond NP, 50 mg at 06/14/25 08 multivitamin tablet 1 tablet, 1 each, oral, Daily, Yen Redmond NP, 1 tablet at 06/14/25 08 Insert peripheral IV, , , Once AND Maintain IV access, , , Until discontinued AND Saline lock IV, , , Once AND sodium chloride 0.9 % flush 10 mL, 10 mL, intravenous, BID, 10 mL at 06/13/25914 AND sodium chloride 0.9 % flush 10 mL, 10 mL, intravenous, PRN, Yen Redmond, DAVID, 10 mL at 06/13/252058 Recording Techniques Instrumentation: A digital EEG was performed using the standard international 10-20 electrode placement and single lead EKG electrode with a sampling rate of 200 samples per second/per channel, at impedance levels less than 10 K Ohms. Montages: Standard 10-20 system montages Type of Study: Continuous video EEG monitoring Conditions of Recording: Awake - drowsy - sleep EEG monitoring: Continuous remote monitoring service used Results Background: The record was well organized. The waking EEG was characterized by a symmetrical, well-formed and modulated 9 Hz posterior dominant rhythm, with medium amplitude (20-70 uV) and reactive to eye opening. The background over the rest of the head consisted of a mixture of alpha and beta frequencies. Sleep: During drowsiness, the alpha rhythm attenuated and diffuse background slowing appeared. Stage 2 sleep was characterized by the appearance of sleep spindles and vertex waves. Focal slowing: There were no focal abnormalities, persistent asymmetries Epileptiform discharges: None Activation Procedures: Hyperventilation:Hyperventilation for 3 minutes produced generalized slowing Photic Simulation: did not alter the record. Clinical events: None reported Heart Rate: Normal sinus rhythm Classification of the findings: 1. Photoparoxysmal response - Waltz type I -benign Impression This is a normal continuous video EEG recording in the inpop-hxvokp-qcdjpv states. There were no focal abnormalities, persistent asymmetries, or epileptiform discharges/ seizures. - Target event captured on 06/13/2025 around 12:05 PM, during intermittent photic stimulation at 5 Hz and 9 Hz:, a photoparoxysmal response (PPR) was elicited. This response was noted to be Type 1, characterized by occipital maximal spiky discharges with biphasic slow waves, but time-locked to the flash stimulus, with no seizure activity, patient reported mildly dizzy, uneasiness - No spontaneous epileptiform discharges were seen outside of photic stimulation. Strong suspicion for benign photoparoxysmal response, given patient with history of childhood epilepsy, but no seizures in the last 20 years off of antiseizure medication and these above EEG findings These findings were discussed with patient at length. Advised to avoid triggers such as strobe lights, videogames Compared to yesterday's EEG: By holding Lamictal, no change in background frequencies, no interictal discharges in the background seen. Anticipate discharge tomorrow This video EEG record was continuously monitored by remote EEG monitoring service. Kaleb Flores MD Epileptologist/ staff neurologist [facility] us Yen Redmond NP NEUROLOGY ORDERABLES Glenny jennifer Result [facility] * Continuous EEG (06/13/2025 6:29 AM EDT) Narrative [facility] - 06/13/2025 9:18 PM EDT Kaleb Flores MD 06/14/2025 5:30 PM Epilepsy Monitoring Unit (EMU) continuous Video Electroencephalography - Interim report EMU monitoring day: 3 Study start date, time: 06/13/2025; 7 AM Study end date, time: 06/14/2025; 7 AM Total duration: 24 hours Clinical Information History: Loree Caicedo is a 54 y.o. female Epilepsy monitoring unit admission indication: Captured episode of feeling like she was on a roller coaster with stomach drop feeling, visual disturbances, evaluation of nocturnal and background activity, and optimization of medications. She was on phenobarbital and Tegretol for 9 years during childhood and is now taking Lamictal. Sedation: Antiseizure medication: Medications: Current Facility-Administered Medications: acetaminophen (TYLENOL) tablet 650 mg, 650 mg, oral, q6h PRN, Yen Redmond NP, 650 mg at 06/13/25 1420 albuterol 1.25 mg/3 mL nebulizer solution 1.25 mg, 1.25 mg, nebulization, q6h PRN, Yen Redmond NP baclofen (LIORESAL) tablet 10 mg, 10 mg, oral, q PM, Yen Redmond NP, 10 mg at 06/13/251809 diphenhydrAMINE (BENADRYL) capsule 25 mg, 25 mg, oral, Nightly PRN, Yen Redmond NP, 25 mg at 06/13/252057 estradioL (ESTRACE) tablet 2 mg, 2 mg, oral, Daily, Yen Redmond, DAVID, 2 mg at 06/14/25833 ibuprofen (ADVIL,MOTRIN) tablet 400 mg, 400 mg, oral, q6h PRN, Yen Redmond NP loperamide (IMODIUM) capsule 2 mg, 2 mg, oral, 4x daily PRN, Yen Redmond NP, 2 mg at 06/12/252139 loratadine (CLARITIN) tablet 10 mg, 10 mg, oral, Daily, Yen Redmond, FI[employer]US ENGINEER, 10 mg at 06/14/25833 LORazepam (ATIVAN) injection 1 mg, 1 mg, intravenous, See admin instructions, Yen Redmond NP meloxicam (MOBIC) tablet 15 mg, 15 mg, oral, Daily, Yen M DAVID Redmond, 15 mg at 06/14/25833 metoclopramide (REGLAN) tablet 5 mg, 5 mg, oral, BID PRN, Yen Redmond NP metoprolol succinate (TOPROL-XL) 24 Hour tablet 50 mg, 50 mg, oral, Daily, Yen M DAVID Redmond, 50 mg at 06/14/25833 multivitamin tablet 1 tablet, 1 each, oral, Daily, Yen M DAVID Redmond, 1 tablet at 06/14/25833 Insert peripheral IV, , , Once AND Maintain IV access, , , Until discontinued AND Saline lock IV, , , Once AND sodium chloride 0.9 % flush 10 mL, 10 mL, intravenous, BID, 10 mL at 06/13/25 0915 AND sodium chloride 0.9 % flush 10 mL, 10 mL, intravenous, PRN, Yen Ruy, DAVID, 10 mL at 06/13/252058 Recording Techniques Instrumentation: A digital EEG was performed using the standard international 10-20 electrode placement and single lead EKG electrode with a sampling rate of 200 samples per second/per channel, at impedance levels less than 10 K Ohms. Montages: Standard 10-20 system montages Type of Study: Continuous video EEG monitoring Conditions of Recording: Awake - drowsy - sleep EEG monitoring: Continuous remote monitoring service used Results Background: The record was well organized. The waking EEG was characterized by a symmetrical, well-formed and modulated 9 Hz posterior dominant rhythm, with medium amplitude (20-70 uV) and reactive to eye opening. The background over the rest of the head consisted of a mixture of alpha and beta frequencies. Sleep: During drowsiness, the alpha rhythm attenuated and diffuse background slowing appeared. Stage 2 sleep was characterized by the appearance of sleep spindles and vertex waves. Focal slowing: There were no focal abnormalities, persistent asymmetries Epileptiform discharges: None Activation Procedures: Hyperventilation:Hyperventilation for 3 minutes produced generalized slowing Photic Simulation: did not alter the record. Clinical events: None reported Heart Rate: Normal sinus rhythm Classification of the findings: 1. Photoparoxysmal reaction Impression This is a normal continuous video EEG recording in the geyyy-gnuqmr-vrkrzw states. There were no focal abnormalities, persistent asymmetries, or epileptiform discharges/ seizures. - Target event captured on 06/13/2025 around 12:05 PM, during intermittent photic stimulation at 5 Hz and 9 Hz:, a photoparoxysmal response (PPR) was elicited. This response was noted to be Type 1, characterized by occipital maximal spiky discharges with biphasic slow waves, but time-locked to the flash stimulus, with no seizure activity, patient reported mildly dizzy, uneasiness - No spontaneous epileptiform discharges were seen outside of photic stimulation. Strong suspicion for benign photoparoxysmal response, given patient with history of childhood epilepsy, but no seizures in the last 20 years off of antiseizure medication and these above EEG findings These findings were discussed with patient at length. Advised to avoid triggers such as strobe lights, videogames This video EEG record was continuously monitored by remote EEG monitoring service. Kaleb Flores MD Epileptologist/ staff neurologist [facility] us Yen Redmond NP NEUROLOGY ORDERABLES Glenny l Result [facility] * Continuous EEG (06/12/2025 6:08 AM EDT) Narrative [facility] - 06/15/2025 12:12 PM EDT Kaleb Flores MD 06/16/2025 3:40 PM Epilepsy Monitoring Unit (EMU) continuous Video Electroencephalography -final report EMU monitoring day: 5 Study start date, time: 06/15/2025; 7 AM Study end date, time: 06/15/2025; 11 AM Total duration: 4 hours Clinical Information History: Loree Caicedo is a 54 y.o. female Epilepsy monitoring unit admission indication: Captured episode of feeling like she was on a roller coaster with stomach drop feeling, visual disturbances, evaluation of nocturnal and background activity, and optimization of medications. She was on phenobarbital and Tegretol for 9 years during childhood and is now taking Lamictal. Sedation: Antiseizure medication: Medications: No current facility-administered medications for this encounter. Current Outpatient Medications: albuterol HFA (PROAIR HFA ; PROVENTIL HFA ; VENTOLIN HFA) 90 mcg/actuation inhaler, Inhale 2 Puffs into the lungs 4 times daily as needed for Cough, Wheezing or Shortness of Breath (and chest tightness)., Disp: , Rfl: B complex tablet, Take 1 tablet by mouth 1 (one) time each day., Disp: , Rfl: baclofen (LIORESAL) 10 mg tablet, Take 1 tablet (10 mg total) by mouth at bedtime., Disp: 30 each, Rfl: 0 budesonide-formoteroL (SYMBICORT) 160-4.5 mcg/actuation inhaler, INHALE 2 PUFFS INTO THE LUNGS TWICE A DAY, Disp: 30.6 each, Rfl: 1 estradioL (ESTRACE) 2 mg tablet, Take 1 tablet (2 mg total) by mouth 1 (one) time each day., Disp: 90 tablet, Rfl: 3 loratadine (CLARITIN) 10 mg tablet, Take 1 tablet (10 mg total) by mouth 1 (one) time each day., Disp: , Rfl: meloxicam (MOBIC) 15 mg tablet, Take 1 tablet (15 mg total) by mouth 1 (one) time each day., Disp: , Rfl: metoprolol succinate (TOPROL-XL) 50 mg 24 hr tablet, Take 1 tablet (50 mg total) by mouth 1 (one) time each day. Do not crush or chew., Disp: 90 each, Rfl: 3 SUMAtriptan (IMITREX) 50 mg tablet, Take 1 tablet (50 mg total) by mouth 1 (one) time if needed for migraine (may repeat x1) for up to 1 dose. May repeat dose once in 2 hours if no relief. Do not exceed 2 doses in 24 hours., Disp: 9 tablet, Rfl: 3 Recording Techniques Instrumentation: A digital EEG was performed using the standard international 10-20 electrode placement and single lead EKG electrode with a sampling rate of 200 samples per second/per channel, at impedance levels less than 10 K Ohms. Montages: Standard 10-20 system montages Type of Study: Continuous video EEG monitoring Conditions of Recording: Awake - drowsy - sleep EEG monitoring: Continuous remote monitoring service used Results Background: The record was well organized. The waking EEG was characterized by a symmetrical, well-formed and modulated 9 Hz posterior dominant rhythm, with medium amplitude (20-70 uV) and reactive to eye opening. The background over the rest of the head consisted of a mixture of alpha and beta frequencies. Sleep: During drowsiness, the alpha rhythm attenuated and diffuse background slowing appeared. Stage 2 sleep was characterized by the appearance of sleep spindles and vertex waves. Focal slowing: There were no focal abnormalities, persistent asymmetries Epileptiform discharges: None Activation Procedures: Hyperventilation:Hyperventilation for 3 minutes produced generalized slowing Photic Simulation: did not alter the record. Clinical events: None reported Heart Rate: Normal sinus rhythm Classification of the findings: 1. Photoparoxysmal response - Waltz type I -benign Impression This is a normal continuous video EEG recording in the wecot-ychxmr-jytbmz states. There were no focal abnormalities, persistent asymmetries, or epileptiform discharges/ seizures. - Target event captured on 06/13/2025 around 12:05 PM, during intermittent photic stimulation at 5 Hz and 9 Hz:, a photoparoxysmal response (PPR) was elicited. This response was noted to be Type 1, characterized by occipital maximal spiky discharges with biphasic slow waves, but time-locked to the flash stimulus, with no seizure activity, patient reported mildly dizzy, uneasiness - No spontaneous epileptiform discharges were seen outside of photic stimulation. Strong suspicion for benign photoparoxysmal response, given EEG findings, patient with history of childhood epilepsy, but no seizures in the last 20 years off of antiseizure medication These findings were discussed with patient at length. Advised to avoid triggers such as strobe lights, videogames This video EEG record was continuously monitored by remote EEG monitoring service. Kaleb Flores MD Epileptologist/ staff neurologist [facility] us Yen Redmond NP NEUROLOGY ORDERABLES Edit ed Result - Final [facility] * EEG awake and asleep (06/11/2025 11:15 PM EDT) Narrative Mary Carmen Flores, Kaleb Salgado MD - 06/11/2025 11:15 PM EDT Kaleb Flores MD 06/14/2025 5:17 PM Epilepsy Monitoring Unit (EMU) continuous Video Electroencephalography - Interim report EMU monitoring day: 1 Study start date, time: 06/11/2025; 9 AM Study end date, time: 06/12/2025; 7 AM Total duration: 22 hours Clinical Information History: Loree Caicedo is a 54 y.o. female Epilepsy monitoring unit admission indication: Captured episode of feeling like she was on a roller coaster with stomach drop feeling, visual disturbances, evaluation of nocturnal and background activity, and optimization of medications. She was on phenobarbital and Tegretol for 9 years during childhood and is now taking Lamictal. Sedation: Antiseizure medication: Medications: Current Facility-Administered Medications: acetaminophen (TYLENOL) tablet 650 mg, 650 mg, oral, q6h PRN, Yen Redmond NP, 650 mg at 06/13/25 1420 albuterol 1.25 mg/3 mL nebulizer solution 1.25 mg, 1.25 mg, nebulization, q6h PRN, Yen Redmond NP baclofen (LIORESAL) tablet 10 mg, 10 mg, oral, q PM, Yen Redmond NP, 10 mg at 06/13/25 181 diphenhydrAMINE (BENADRYL) capsule 25 mg, 25 mg, oral, Nightly PRN, Yen Redmond NP, 25 mg at 06/13/252057 estradioL (ESTRACE) tablet 2 mg, 2 mg, oral, Daily, Yen Redmond NP, 2 mg at 06/14/25 0834 ibuprofen (ADVIL,MOTRIN) tablet 400 mg, 400 mg, oral, q6h PRN, Yen Redmond NP loperamide (IMODIUM) capsule 2 mg, 2 mg, oral, 4x daily PRN, Yen Redmond NP, 2 mg at 06/12/252139 loratadine (CLARITIN) tablet 10 mg, 10 mg, oral, Daily, Yen Redmond NP, 10 mg at 06/14/25833 LORazepam (ATIVAN) injection 1 mg, 1 mg, intravenous, See admin instructions, Yen Redmond NP meloxicam (MOBIC) tablet 15 mg, 15 mg, oral, Daily, Yen Redmond NP, 15 mg at 06/14/25 08 metoclopramide (REGLAN) tablet 5 mg, 5 mg, oral, BID PRN, Yen Redmond NP metoprolol succinate (TOPROL-XL) 24 Hour tablet 50 mg, 50 mg, oral, Daily, Yen Redmond NP, 50 mg at 06/14/25 08 multivitamin tablet 1 tablet, 1 each, oral, Daily, Yen Redmond NP, 1 tablet at 06/14/25 08 Insert peripheral IV, , , Once AND Maintain IV access, , , Until discontinued AND Saline lock IV, , , Once AND sodium chloride 0.9 % flush 10 mL, 10 mL, intravenous, BID, 10 mL at 06/13/25 0915 AND sodium chloride 0.9 % flush 10 mL, 10 mL, intravenous, PRN, Yen Redmond NP, 10 mL at 06/13/252058 Recording Techniques Instrumentation: A digital EEG was performed using the standard international 10-20 electrode placement and single lead EKG electrode with a sampling rate of 200 samples per second/per channel, at impedance levels less than 10 K Ohms. Montages: Standard 10-20 system montages Type of Study: Continuous video EEG monitoring Conditions of Recording: Awake - drowsy - sleep EEG monitoring: Continuous remote monitoring service used Results Background: The record was well organized. The waking EEG was characterized by a symmetrical, well-formed and modulated 9 Hz posterior dominant rhythm, with medium amplitude (20-70 uV) and reactive to eye opening. The background over the rest of the head consisted of a mixture of alpha and beta frequencies. Sleep: During drowsiness, the alpha rhythm attenuated and diffuse background slowing appeared. Stage 2 sleep was characterized by the appearance of sleep spindles and vertex waves. Focal slowing: There were no focal abnormalities, persistent asymmetries Epileptiform discharges: None Activation Procedures: Hyperventilation:Hyperventilation for 3 minutes produced generalized slowing Photic Simulation: did not alter the record. Clinical events: None reported Heart Rate: Normal sinus rhythm Classification of the findings: 1. Normal Impression This is a normal continuous video EEG recording in the wfrgx-[id number] states. There were no focal abnormalities, persistent asymmetries, or epileptiform discharges/ seizures. No indicators of seizures noted, however the absence of epileptiform discharges does not preclude a clinical diagnosis of seizures. This video EEG record was continuously monitored by remote EEG monitoring service. Kaleb Flores MD Epileptologist/ staff neurologist [facility] us Ursula JACOBSON NEUROLOGY ORDERABLES Final R esult * EEG awake and asleep (06/11/2025 11:15 PM EDT) Narrative Mary Carmen Flores, Kaleb Salgado MD - 06/11/2025 11:15 PM EDT Kaleb Flores MD 06/14/2025 5:17 PM Epilepsy Monitoring Unit (EMU) continuous Video Electroencephalography - Interim report EMU monitoring day: 1 Study start date, time: 06/11/2025; 9 AM Study end date, time: 06/12/2025; 7 AM Total duration: 22 hours Clinical Information History: Loree Caicedo is a 54 y.o. female Epilepsy monitoring unit admission indication: Captured episode of feeling like she was on a roller coaster with stomach drop feeling, visual disturbances, evaluation of nocturnal and background activity, and optimization of medications. She was on phenobarbital and Tegretol for 9 years during childhood and is now taking Lamictal. Sedation: Antiseizure medication: Medications: Current Facility-Administered Medications: acetaminophen (TYLENOL) tablet 650 mg, 650 mg, oral, q6h PRN, Yen Redmond NP, 650 mg at 06/13/25 1420 albuterol 1.25 mg/3 mL nebulizer solution 1.25 mg, 1.25 mg, nebulization, q6h PRN, Yen Redmond NP baclofen (LIORESAL) tablet 10 mg, 10 mg, oral, q PM, Yen Redmond NP, 10 mg at 06/13/251809 diphenhydrAMINE (BENADRYL) capsule 25 mg, 25 mg, oral, Nightly PRN, Yen Redmond NP, 25 mg at 06/13/252057 estradioL (ESTRACE) tablet 2 mg, 2 mg, oral, Daily, Yen Redmond NP, 2 mg at 06/14/25833 ibuprofen (ADVIL,MOTRIN) tablet 400 mg, 400 mg, oral, q6h PRN, Yen Redmond NP loperamide (IMODIUM) capsule 2 mg, 2 mg, oral, 4x daily PRN, Yen Redmond NP, 2 mg at 06/12/252139 loratadine (CLARITIN) tablet 10 mg, 10 mg, oral, Daily, Yen Redmond NP, 10 mg at 06/14/25833 LORazepam (ATIVAN) injection 1 mg, 1 mg, intravenous, See admin instructions, Yen Redmond NP meloxicam (MOBIC) tablet 15 mg, 15 mg, oral, Daily, Yen Redmond NP, 15 mg at 06/14/25833 metoclopramide (REGLAN) tablet 5 mg, 5 mg, oral, BID PRN, Yen Redmond NP metoprolol succinate (TOPROL-XL) 24 Hour tablet 50 mg, 50 mg, oral, Daily, Yen Redmond NP, 50 mg at 06/14/25833 multivitamin tablet 1 tablet, 1 each, oral, Daily, Yen Redmond NP, 1 tablet at 06/14/25 08 Insert peripheral IV, , , Once AND Maintain IV access, , , Until discontinued AND Saline lock IV, , , Once AND sodium chloride 0.9 % flush 10 mL, 10 mL, intravenous, BID, 10 mL at 06/13/25 0915 AND sodium chloride 0.9 % flush 10 mL, 10 mL, intravenous, PRN, Yen Redmond NP, 10 mL at 06/13/252058 Recording Techniques Instrumentation: A digital EEG was performed using the standard international 10-20 electrode placement and single lead EKG electrode with a sampling rate of 200 samples per second/per channel, at impedance levels less than 10 K Ohms. Montages: Standard 10-20 system montages Type of Study: Continuous video EEG monitoring Conditions of Recording: Awake - drowsy - sleep EEG monitoring: Continuous remote monitoring service used Results Background: The record was well organized. The waking EEG was characterized by a symmetrical, well-formed and modulated 9 Hz posterior dominant rhythm, with medium amplitude (20-70 uV) and reactive to eye opening. The background over the rest of the head consisted of a mixture of alpha and beta frequencies. Sleep: During drowsiness, the alpha rhythm attenuated and diffuse background slowing appeared. Stage 2 sleep was characterized by the appearance of sleep spindles and vertex waves. Focal slowing: There were no focal abnormalities, persistent asymmetries Epileptiform discharges: None Activation Procedures: Hyperventilation:Hyperventilation for 3 minutes produced generalized slowing Photic Simulation: did not alter the record. Clinical events: None reported Heart Rate: Normal sinus rhythm Classification of the findings: 1. Normal Impression This is a normal continuous video EEG recording in the stxja-kvrdid-kjbnpw states. There were no focal abnormalities, persistent asymmetries, or epileptiform discharges/ seizures. No indicators of seizures noted, however the absence of epileptiform discharges does not preclude a clinical diagnosis of seizures. This video EEG record was continuously monitored by remote EEG monitoring service. Kaleb Flores MD Epileptologist/ staff neurologist [facility] Ursula JACOBSON NEUROLOGY ORDERABLES Final R esult * (ABNORMAL) Comprehensive metabolic panel (06/11/2025 9:48 AM EDT) Sodium 140 135 - 145 mmol/L LAB CHEMISTRY METHOD 06/11/2025 11:11 AM EDT [facility] Potassium 3.9 3.5 - 5.1 mmol/L LAB CHEMISTRY METHOD 06/11/2025 11:11 AM EDT [facility] Chloride 104 98 - 107 mmol/L LAB CHEMISTRY METHOD 06/11/2025 11:11 AM [facility] CO2 30 24 - 32 mmol/L LAB CHEMISTRY METHOD 06/11/2025 11:11 AM [facility] Anion Gap 6 5 - 14 LAB CHEMISTRY METHOD 06/11/2025 11:11 AM [facility] Glucose 105 70 - 199 mg/dL LAB CHEMISTRY METHOD 06/11/2025 11:11 AM [facility] BUN 16 7 - 17 mg/dL LAB CHEMISTRY METHOD 06/11/2025 11:11 AM [facility] Creatinine 0.60 0.50 - 1.00 mg/dL LAB CHEMISTRY METHOD 06/11/2025 11:11 AM [facility] eGFR 106 >=60 mL/min/1. 73m2 LAB CHEMISTRY METHOD 06/11/2025 11:11 AM [facility] Comment:Calculation based on the Chronic Kidney Disease Epidemiology Collaboration (CKD-EPI) equation refit without adjustment for race. BUN/Creatinine Ratio 26.7(H) 12.0 - 20.0 LAB CHEMISTRY METHOD 06/11/2025 11:11 AM [facility] Calcium 9.3 8.4 - 10.2 mg/dL LAB CHEMISTRY METHOD 06/11/2025 11:11 AM [facility] AST (SGOT) 22 5 - 40 unit/L LAB CHEMISTRY METHOD 06/11/2025 11:11 AM [facility] ALT (SGPT) 17 7 - 52 unit/L LAB CHEMISTRY METHOD 06/11/2025 11:11 AM [facility] Alkaline Phosphatase 42 34 - 104 unit/L LAB CHEMISTRY METHOD 06/11/2025 11:11 AM [facility] Total Protein 6.5 6.4 - 8.5 g/dL LAB CHEMISTRY METHOD 06/11/2025 11:11 AM [facility] Albumin 4.1 3.5 - 5.0 g/dL LAB CHEMISTRY METHOD 06/11/2025 11:11 AM EDT [facility] Total Bilirubin 0.2(L) 0.3 - 1.0 mg/dL LAB CHEMISTRY METHOD 06/11/2025 11:11 AM EDT [facility] Blood Venous blood specimen / Unknown Venipuncture / Unknown 06/11/2025 9:48 AM EDT 06/11/2025 10:35 AM EDT us Yen Redmond NP LAB BLOOD ORDERABLES Glenny l Result [facility] [address] [place] [address], [place] [phone] * (ABNORMAL) Lamotrigine level (06/11/2025 9:47 AM EDT) Lamotrigine (Lamictal) Level 0.3(L) 2.0 - 15.0 ug/mL 06/14/2025 8:31 AM EDT [facility] Comment: Lamotrigine toxic level: >20 ug/mL The reference range is not well established. It may be as wide as 1 - 20 ug/mL. If applicable, any drug confirmation testing reported here was developed and the performance characteristics determined by [facility]. This confirmation testing has not been cleared or approved by the FDA. The laboratory is regulated under CLIA as qualified to perform high-complexity testing. This test is used for patient testing purposes. It should not be regarded as investigational or for research. Test performed at [facility], [address] , [place] [address] Alejandra Mendes MD, PhD - [employer] Blood Venous blood specimen / Unknown Venipuncture / Unknown 06/11/2025 9:47 AM EDT 06/11/2025 10:35 AM EDT us Yen Redmond NP LAB BLOOD ORDERABLES Glenny l Result [facility] [address] [place] [address] * TRANSTHORACIC ECHOCARDIOGRAM (TTE) COMPLETE (05/25/2025 2:12 PM EDT) Left Atrium Minor [place] 4.8 cm CV PACS Left Atrium Major [place] 5.5 cm CV PACS LA Area Sys (A2C) 13 cm2 CV PACS LA Area Sys (A4C) 19 cm2 CV PACS LA Volume (BP) 41 mL CV PACS RA Area 10.3 cm2 CV PACS RA 2D Volume 19 mL CV PACS AV Mean Gradient 5 mmHg CV PACS Ao VTI 38.9 cm CV PACS AV Peak Haseeb 1.7 m/s CV PACS AV Peak Gradient 11 mmHg CV PACS AV Area Continuity Equation 1.4 cm2 CV PACS AV Area Peak Velocity 1.4 cm2 CV PACS Aortic Sinus Valsalva 3.1 cm CV PACS Ascending Aorta 3.9 cm CV PACS IVSD 0.7 0.6 - 0.9 cm CV PACS LVIDD 4.6 3.8 - 5.2 cm CV PACS LVIDS 3.1 2.2 - 3.5 cm CV PACS LVOT Diameter 1.7 cm CV PACS LVOT Mean Haseeb 0.7 m/s CV PACS LVOT Mean Grad 2 mmHg CV PACS LVOT Peak VTI 24.5 cm CV PACS LVOT Peak Haseeb 1.1 m/s CV PACS LVOT Peak Gradient 4 mmHg CV PACS LVPWD 0.9 0.6 - 0.9 cm CV PACS MV E' Tissue Velocity Lateral 10 cm/s CV PACS MV E' Tissue Velocity Septal 7 cm/s CV PACS LVOT Area 2.3 cm2 CV PACS LVOT Stroke Volume 56 mL CV PACS E Wave Deceleration Time 197 119 - 242 ms CV PACS MV Peak A Haseeb 1.00 m/s CV PACS MV Peak E Haseeb 0.90 m/s CV PACS MV Mean Gradient 2 mmHg CV PACS MV VTI 31.7 cm CV PACS Mitral Valve Max Velocity 1.0 m/s CV PACS MV Peak Gradient 4 mmHg CV PACS MV Area Continuity Equation 1.8 cm2 CV PACS PV Acceleration Time 155 ms CV PACS PV Acceleration Time 155 ms CV PACS RV Diastolic Basal Dimension 2.8 2.5 - 4.1 cm CV PACS RV S' 12 cm/s CV PACS TAPSE 24 mm CV PACS TR Peak Velocity 2.00 m/s CV PACS TR Peak Gradient 16 mmHg CV PACS E/E' Ratio Septal 13 CV PACS E/E' Ratio Averaged 11 CV PACS Relative Wall Thickness ratio 0.40 0.22 - 0.42 CV PACS LVOT:AV VTI Index 0.63 CV PACS FS 33 % CV PACS LV Mass 2D 125 66 - 150 g CV PACS MV VTI:LVOT VTI ratio 1.3 CV PACS LVOT flow 159 mL/s CV PACS AV Velocity Ratio 0.63 CV PACS E/A Ratio 0.9 0.8 - 2.0 CV PACS E/E' Ratio Lateral 9 CV PACS BSA 1.94 m2 CV PACS LVOT Stroke Index 0 mL/m2 CV PACS Ascending Aorta Index 2.05 cm/m2 CV PACS RA 2D Volume Index 10 15 - 27 mL/m2 CV PACS JENIFFER Index (VTI) 0.75 cm2/m2 CV PACS JENIFFER Index (Pk Haseeb) 0.74 cm2/m2 CV PACS LVIDD Index 2.42 cm/m2 CV PACS LVIDS Index 1.63 cm/m2 CV PACS LA Volume Index (BP) 21 mL/m2 CV PACS LV Mass Index 2D 62 44 - 88 g/m2 CV PACS RV Free Wall Peak S' 12 cm/s CV PACS RA Major [place] 4.7 cm CV PACS RA Major [place] Index 2.5 2.2 - 2.8 cm/m2 CV PACS MV PHT 57 ms CV PACS AV Area 2D 1.4 cm2 CV PACS JENIFFER Index (2D) 0.74 cm2/m2 CV PACS AV Area Index 0.7 CV PACS Anatomical Region Laterality Modality Ultrasound Narrative 06/06/2025 9:40 AM EDT Left ventricle cavity size is normal. Left ventricular systolic function is in the normal range with an ejection fraction of 60-65%. No regional LV wall motion abnormalities noted. Left ventricle wall thickness is normal. Right ventricle cavity is normal. Right ventricular systolic function is normal. No hemodynamically significant valve disease. The ascending aorta is mildly dilated (3.9 cm). Left Ventricle Left ventricle cavity size is normal. Wall thickness is normal. Systolic function is normal with an ejection fraction of 60-65%. There are no regional LV wall motion abnormalities. There is no diastolic dysfunction. Right Ventricle Right ventricle cavity appears normal. Systolic function is normal. Left Atrium Left atrium cavity size is normal. Right Atrium Right atrium cavity is normal. IVC/SVC Inferior vena cava structure is normal. RA pressures is estimated to be 3 mmHg (IVC diameter <21 mm and decreases >50% during inspiration). Mitral Valve The leaflets are mildly thickened. There is trace regurgitation. There is no evidence of mitral valve stenosis. Tricuspid Valve Tricuspid valve structure is normal. There is trace regurgitation. There is no evidence of tricuspid valve stenosis. Aortic Valve The aortic valve is trileaflet. The leaflets are mildly thickened. There is trace to mild regurgitation. There is no evidence of aortic valve stenosis. Pulmonic Valve Visualized portions of the pulmonic valve appear normal. There is trace pulmonic valve regurgitation. There is no evidence of pulmonic valve stenosis. Ascending Aorta The ascending aorta is mildly dilated (3.9 cm). Pericardium Pericardium appears normal. There is no pericardial effusion. Study Details Overall the study quality was adequate. Result [facility] Eliseo JACOBSON CV ECHO PROCEDURES Final Result * External Mammogram Report (08/15/2024 3:25 PM EDT) Anatomical Region Laterality Modality Mammography Result [facility] Historical Provider IMG BI PROCEDURES Final R esult * (ABNORMAL) Lipid panel (10/12/2023) [facility] LDL/HDL Ratio 3 0 - 4 Triglycerides 142 0 - 150 mg/dL Cholesterol 239(A) 0 - 200 mg/dL HDL 90 >=40 mg/dL LDL Cholesterol 121(A) 0 - 100 mg/dL Blood Venous blood specimen / Unknown Result [facility] Historical Provider LAB BLOOD ORDERABLES Glenny l Result * Hm HIV Screening (07/25/2010) [facility] HIV Screening abstracted Result [facility] Historical [facility] Final Result from Last 3 Months or Most Recently Relevant to Health Maintenance Insurance [facility] Advance Directives * Full Code - Confirmed (Latest Code Status on File) Date Activated Date Inactivated Comments 06/11/2025 9:17 AM 06/15/2025 2:[address] [facility] was ascertained in the following way: Code status discussion: discussion with patient To update the patient's code status, place a code status order. Do not modify or discontinue any currently active code status orders. Care Teams 411 Directory Assistance Operator Relationship Specialty Start Date End Date Real Dasilva MD [address] [place] [address] PCP - General 08/23/24
--- OUTSIDE RECORDS SUMMARY | 2025-08-24 10:09 | XMS_ITS | Data Portability ---
Author Organization [facility], [facility] Address [address] [place] [address] Care Team Providers Care Fitter Mechanic Name Role Phone CARLOS CHIU Primary Care Provider Assessment No assessment recorded. Plan of Treatment Reminders Order Date Submit Date Provider Last Modified By Organization Details Last Modified Time Details Appointments None recorde d. Lab None recorde d. Referral None recorde d. Procedures None recorde d. Surgeries None recorde d. Imaging XR, shoulde r, 2 or more view - left shldr rm 3 025 12/13/19 [facility] Office, [address], [facility] [address], [place], [address], 10:11:30 Medication Orders None recorde d. Patient TargetsNo targets recorded. Patient InstructionsNo instructions recorded. Reason for Referral None Reported. Results Created Date Observation Date Name Description Value Unit Range Abnormal Flag Note LastModifiedBy Organization Detail LastModifiedTime 12/13/19 25 12/13/2024 XR, shoul ryland, 2 or more view [email or web address]:/ [email or web address] ?Encry pted=s hAaTro YD8dLq bEUv6g %2BXZw aYqtaq 0bqfl% 2Fg9IQ a4ajBk vP9nXo QUaueC m3YtLR FvZlgJ JJ8mAn HZtai3 8k2541 AC0Kqb 3mAVKS kKiQtr MwF INTERFACE [facility] [address], [place], [address], 12/13/2024 10:11:31 12/13/19 25 12/13/2024 XR, shoul ryland, 2 or more view [email or web address] ?Encry pted=s hAaTro YD8dLq bEUv6g %2BXZw aYqtaq 0bqfl% 2Fg9IQ a4ajBk vP9nXo QUaueC m3YtLR FvZlgJ JJ8mAn HZtai3 1i5448 AC0Kqb 3mAVKS kKiQtr MwF INTERFACE [facility] [address], [place], [address], 12/13/2024 10:11:32 Result Notes Documentation Provider Name and Address Organization Details Recorded Time Xr, Shoulder, 2 Or More View : [email or web address] Encrypted=nzKyRviWB2kZhsT Uv6g%7NHHrqAsxbs7pesy%2Fg 1QQj0pvFrpD7nQsBXpluCr4Fu HWKdJbhTLN8mDsHNhdn95p918 8HX3Liv2oNKEGsNuMxgPlL Not Available [facility] 12/13/2024 10:11: 31 Xr, Shoulder, 2 Or More View : [email or web address] Encrypted=byYgTcjWS8uCmoM Uv6g%7KTAxoTeqed1nnbi%2Fg 7RLt3xwFyeX9eGlFTfjzGm1It IVVwWchINY7zXsPJnhd41b345 8CQ0Agp0lTFZOxSaJsaAxB Not Available [facility] 12/13/2024 10:11: 33 Procedures Surgical History Date Name Laterality Status Provider Name and Address Organization Details Recorded Time Sports Shoulder 4&1 completed Osmar Pruitt PA-C [address], [place], [address], [facility] - [facility] 12/13/2024 10:39:45 Imaging Results None recorded. Procedure Notes None recorded. Medical Equipment None Reported. Allergies Allergen ID Allergen Name Allergen Category Reaction Reaction Severity Criticality Documentation Date Start Date Code Code System Note Provider Name and Address Organization Details Recorded Time 19702 Levaquin medicatio n Not available Not available Not available 01/31/2024200899 2 RxNorm Aller gyRea ction : 'Shoc k/Unc onsci ousne ss'; Not Available [facility] 4 14:03:45 66119 Substance with sulfonami de structure and antibacte rial mechanism of action (substanc e) medicatio n Not available Not available Not available 01/31/20242008 93310 8003 SNOMED Aller gyRea ction : 'Asth ma/Sh ort of Breat h'; Not Available [facility] 4 14:03:46 02894 Cipro medicatio n Not available Not available Not available 01/31/2024200856 3 RxNorm Aller gyRea ction : 'Asth ma/Sh ort of Breat h'; Not Available [facility] 4 14:03:46 84224 Bactrim medicatio n Not available Not available Not available 01/31/20242008 21329 9 RxNorm Aller gyRea ction : 'Asth ma/Sh ort of Breat h'; Not Available [facility] 4 14:03:46 02366 Biaxin medicatio n Not available Not available Not available 01/31/2024200872 9 RxNorm Aller gyRea ction : 'Skin React ion'; Not Available [facility] 4 14:03:46 35012 Keflex medicatio n Not available Not available Not available 01/31/2024200816 7 RxNorm Aller gyRea ction : 'Skin React ion'; Not Available [facility] 4 14:03:46 00768 Iodinated contrast media (substanc e) medicatio n Not available Not available Not available 01/31/20242021 05354 2003 SNOMED Aller gyNam e: 'Cont rast Dye'; Not Available [facility] 4 14:03:46 Medications Name Sig Start Date Stop Date Status Note LastModified by Organization Details LastModified Time prednisone 10 mg tablet PLEASE SEE ATTACHED FOR DETAILED DIRECTIONS active Not Available Not Available N ot Available azithromycin 250 mg tablet TAKE 2 TABLETS BY MOUTH TODAY, THEN TAKE 1 TABLET DAILY FOR 4 DAYS DIRECTED active Not Available Not Available No t Available meloxicam 15 mg tablet TAKE 1 TABLET BY MOUTH EVERY DAY active Not Available Not Available No t Available prednisone 20 mg tablet PLEASE SEE ATTACHED FOR DETAILED DIRECTIONS active Not Available Not Available N ot Available amitriptylin e 25 mg tablet TAKE 1-4 ORAL EVERY NIGHT FOR 30 DAYS active Not Available Not Available No t Available pseudoephedr ine-guaifene sin ER 80-700 mg tablet,exten ded release DO NOT DRIVE WHILE ON THIS MEDICATION 2010 active Statu s: 'Curr ent'; Not Available Not Available Not Available prednisone 50 mg tablet TAKE 1 ORAL EVERY DAY FOR 7 DAYS active Not Available Not Available N ot Available estradiol 2 mg tablet TAKE 1 TABLET BY MOUTH EVERY DAY active Not Available Not Available No t Available hydroxyzine HCl 25 mg tablet TAKE 1 TABLET BY MOUTH 4 TIMES A DAY NEEDED FOR ITCHING FOR 10 DAYS. (MAY TAKE 2 TABS AT BEDTIME) active Not Available Not Available Not Available amoxicillin 875 mg-potassium clavulanate 125 mg tablet TAKE 1 TABLET BY MOUTH TWICE A DAY FOR 7 DAYS active Not Available Not Available No t Available cyclobenzapr ine 5 mg tablet TAKE 1 TABLET BY MOUTH THREE TIMES A DAY NEEDED active Not Available Not Available No t Available budesonide-f ormoterol HFA 160 mcg-4.5 mcg/actuatio n aerosol inhaler INHALE 2 PUFFS INTO THE LUNGS TWICE A DAY active Not Available Not Available Not Available GaviLyte-G 236 gram-22.74 gram-6.74 gram-5.86 gram oral solution TAKE 8 OUNCE BY MOUTH DIRECTED DRINK A GLASS EVERY 10-15 MINUTES active Not Available Not Available No t Available Vitals Date Recorded Body height Body mass index (BMI) Body weight Provider Name and Address Organization Details Last Updated DateTime 12/13/2024 165.1 cm 26.6 kg/m2 40849.78 g Anamika Hanna [place] - [facility] 12/13/2024 09:58:42 Social History None recorded. Functional Status None recorded. Mental Status None recorded. Family History Nothing Reported. Medical History No medical history recorded. Gynecological HistoryNo gynecological history recorded. Obstetrics History GPAL:G 0 P 0 0 0 0 Past Encounters Encounter ID Performer Location Encounter Start Date Encounter Closed Date Diagnosis/Indication Diagnosis SNOMED-CT Code Diagnosis ICD10 Code Diagnosis IMO Codes Diagnosis Note [id number] Osmar Pruitt PA-C [facility] [place] [address] [place] [address] 12/13/2024 08:46:09 12/27/2024 11:25:21 Pain of left shoulder region 8709525872 M25.512 [id number] Health Concerns Section Related Observation LastModified by Organization Detai ls LastModified Time None Recorded Concern Status LastModified by Organization Details LastModified Time None Recorded Advance Directives Directive None Recorded Payers Insurance Date Sequence Insurance Name Policy Number Policy Santiago Covered Member ID Santiago Member ID Guarantor Name 05/14/2025 1 [employer] [id number] Ameya Caicedo [id number] Laura Caicedo Notes Date Note Type Note Provider Name and Address Organization Details Recorded Time 12/13/2024 text/html I am seeing the patient today under the supervision of Dr. Clancy who was available but who did not see the patient.HPI:Jayson neely's a 54-year-old female accompanied to the office complaints of discomfort about the left shoulder. Her left shoulder pain started couple weeks ago. She denies injury. She developed bicep pain. Now she has pain with lifting activities of the left upper extremity. The pain radiates to the anterior left shoulder. She had a previous arthroscopic procedure done elsewhere for calcium. She was seen in urgent care today.Past family, medical, social history and review of systems has been reviewed, updated and is located in the patient s chart.Examination :The patient is well appearing and in no apparent distress. Alert and oriented x3. Gait is symmetric. No significant swelling, warmth, erythema about the left shoulder. Her active range of motion is forward elevation near 175 with pain to midrange manipulations. Positive pinpoint at the left shoulder. 4/5 strength of left shoulder. Good stability of the left shoulder. Peripheral, vascular, lymphatic examination, skin, neurological, coordination, reflexes, sensation are within normal limits.X-rays ordered, obtained and reviewed at [facility] 4 views left shoulder view demonstrate a slight type II acromion. Distal calcific bodies evident.Impression :Impingement syndrome left shoulderPlan:I reviewed the x-rays and diagnosed with the patient. We discussed conservative management for this problem. Activity modification discussed. P.r.n. NSAIDs can be used. We discussed risks associated with NSAID use. We discussed a home exercise program. We discussed injection therapies. I gave her an injection subacromial space a left shoulder. She will follow-up as needed. Osmar Pruitt PA-C [address], [place], [address], [facility] - [facility] 12/13/2024 10:40:30 OBGyn Episode No OBEpisode recorded.
--- OUTSIDE RECORDS SUMMARY | 2025-08-24 10:09 | XMS_ITS | Clinical Summary ---
Author Organization [facility] Address [address] [place] [address] Care Team Providers Care Electronic Scale Assembler And Tester Name Role Phone Xochitl Palemr MD Primary Care Provider [phone] Social History Tobacco Use Types Packs/Day Years [...] of 2) 2019 COVID-19 Vaccine (1 - season) 2025 Care Teams Electronic Scale Assembler And Tester Relationship Specialty Start Date End Date Xochitl Palmer MD [address] [place] [address] PCP - General
== END 2025-08-24 09:23 | disposition home or self-care (01) ==
LOC: HO.MAMMO 09:22
PROVIDERS: PCP Internal Medicine; Visit Provider Obstetrics & Gynecology
DX: Z12.31 Encounter for screening mammogram for malignant neoplasm of breast (principal)
CPT/HCPCS: 77063; 77067

== ENCOUNTER → 2025-08-24 09:30 | Outpatient (BNV) | payer BC, SELFPAY | PROVIDERS: PCP Internal Medicine; Visit Provider Radiology Body Imaging | DX: Z12.31 Encounter for screening mammogram for malignant neoplasm of breast (principal) | CPT/HCPCS: 77063; 77067 ==

== ENCOUNTER 2025-10-23 07:57 | Outpatient (AMB) | payer BC, SELFPAY ==
[2025-10-23 07:53] VITALS: BMI 29.8
--- NOTE | 2025-10-23 07:53 | A.PHYSOV_ITS ---
Vital Signs 10/23/25 07:53 Height 5 ft 5 in Weight 179 lb BMI 29.8 Intake Visit Reasons: FOLLOW UP - LEG PAIN Intake Note: Patient is a 54 year old female in office today for leg pain. Allergies cephalexin Allergy (Unknown, Verified 10/23/25 07:55) Unknown ciprofloxacin (Cipro) Allergy (Unknown, Verified 10/23/25 07:55) Unknown epinephrine Allergy (Unknown, Verified 10/23/25 07:55) Unknown omeprazole (Prilosec) Allergy (Unknown, Verified 10/23/25 07:55) Unknown ondansetron (Zofran) Allergy (Unknown, Verified 10/23/25 07:55) Unknown venlafaxine Allergy (Unknown, Verified 10/23/25 07:55) Unknown zolpidem Allergy (Unknown, Verified 10/23/25 07:55) Unknown IV contrast Allergy (Unknown, Uncoded 06/16/24 11:46) Unknown levoquin Allergy (Unknown, Uncoded 06/16/24 11:46) Unknown sulfa drugs Allergy (Unknown, Uncoded 06/16/24 11:46) Unknown HPI Comments Details: History of Present Illness The patient is a 54-year-old individual presenting with persistent lower back pain and lumbar radiculitis. The symptoms have been ongoing for a long time, with a history of left L4 transforaminal injection on October 24, 2024, which resulted in a 30% reduction in pain, although the pain returned shortly thereafter. The patient also reports pain on the lateral aspect of both hips, with a left hip injection received on November 07, 2024. The patient has been experiencing symptoms suggestive of neuropsychiatric lupus, according to her health and safety coordinator, including joint pain in the elbows, knees, and ankles, as well as cognitive difficulties and headaches. A spinal tap revealed elevated protein and immunoglobulin IgG, but no oligoclonal bands for multiple sclerosis. The patient has possible epilepsy and has been experiencing symptoms reminiscent of seizure auras. Patient states that 1 day she forgot to go to work. The patient reports recent onset of lateral epicondylitis, characterized by pain in the elbow, particularly when lifting objects. The pain started approximately three weeks ago and is exacerbated by activities involving wrist and finger ex tension. Pain Description - Onset: Long-standing lower back pain with recent exacerbation - Quality: Persistent and radiating - Location: Lower back, lateral aspect of both hips, elbows, knees, and ankles - Radiation: Radiating to hips - Exacerbating factors: Lifting objects, wrist and finger extension - Relieving factors: Previous injections provided temporary relief Results - Imaging: Lumbar sacral spine x-rays dated September 04, 2024, were unremarkable - Imaging: Left hip x-rays dated September 04, 2024, showed calcification of the trochanteric bursa - Imaging: Right hip x-rays were unremarkable - Imaging: MRI of the lumbosacral spine dated September 11, 2024, showed mild degenerative disc disease at L3-L4 with a small left paracentral disc protrusion without nerve root compression - Labs: Spinal tap showed elevated protein and immunoglobulin IgG, but no oligoclonal bands for multiple sclerosis [facility] Medical History (Updated 10/23/25 @ 08:22 by Ace Roche DO) Polyarthralgia Lateral epicondylitis of right elbow Lumbar radiculitis Hip pain, bilateral Rash and nonspecific skin eruption Surgical History H/O shoulder surgery Social History Household Members: Spouse Alcohol intake: current Alcohol intake frequency: holidays/special occasions only Patient Tobacco Use Status: Never used Tobacco Current occupational status: employed Review of Systems Narrative Review of Systems - Musculoskeletal: Reports joint pain in elbows, knees, and ankles - Neurological: Reports cognitive difficulties, headaches, and symptoms re miniscent of seizure auras - Genitourinary: Denies any change in bowel bladder habits Patient denies any fever or chills, denies uncontrolled depression or suicidal ideation Physical Exam Exam Exam: Physical Exam - Musculoskeletal: Tenderness over the lateral epicondyle of the elbow, pain with resisted right elbow extension She ambulates without antalgia. Lumbar range of motion was preserved. SI provocative maneuvers were negative. Positive SI joint tenderness with palpation on both sides. Dural tension signs were negative. Neurological examination of upper and lower extremities was nonfocal. Cranial nerves were intact. Patient demonstrated no upper motor neuron signs. Vital Signs: BMI result Body Mass Index 29.8 Assessment & Plan Assessment & Plan (1) Hip pain, bilateral: Code(s): M25.551 - Pain in right hip; M25.552 - Pain in left hip Category: Medical (2) Lumbar radiculitis: Code(s): M54.16 - Radiculopathy, lumbar region Category: Medical (3) Lateral epicondylitis of right elbow: Code(s): M77.11 - Lateral epicondylitis, right elbow Category: Medical (4) Polyarthralgia: Code(s): M25.50 - Pain in unspecified joint Category: Medical Plan Pain Management - Affect: Pain impacting cognitive function and mood - Analgesia: Currently using meloxicam, with inconsistent use of turmeric - Adverse Effects: None reported - Activities of Daily Living: Pain interferes with daily activities, including work and lifting objects - Aberrant Drug Related Behaviors: None reported Plan Patient was informed and verbally consented to the use of an ambient scribe for clinic note documentation during this visit. 1. Lumbar Radiculitis The patient continues to experience persistent lower back pain and lumbar radiculitis despite previous interventions, including a left L4 transforaminal injection which provided temporary relief. The plan includes continued monitoring of symptoms and consideration of further interventional procedures if necessary. 2. Neuropsychiatric Lupus The patient is being evaluated for neuropsychiatric lupus, with symptoms including joint pain, cognitive difficulties, and headaches. The patient is under the care of a health and safety coordinator and neurologist for further assessment and management. 3. Lateral Epicondylitis (Tennis Elbow) The patient has been advised to manage lateral epicondylitis with stretching, icing, and the use of a tennis elbow strap. Physical therapy and turmeric supplementation are also recommended as part of the management plan. She will continue with use of meloxicam which was renewed today. Discussion Notes During the visit, we discussed the ongoing management of the patient's lumbar radiculitis, including the potential for further interventional procedures if symptoms persist. We also reviewed the patient's symptoms suggestive of neuropsychiatric lupus and the importance of continued evaluation by rheumatology and neurology specialists. For the lateral epicondylitis, I recommended conservative management with stretching, icing, and the use of a tennis elbow strap, along with physical therapy and turmeric supplementation. Patient Instructions - Continue using meloxicam as prescribed and consider consistent use of turmeric supplementation. - Follow up with rheumatology and neurology for ongoing evaluation of neuropsychiatric lupus. - Implement stretching and icing routines for elbow pain, and use a tennis elbow strap during daily activities. - Schedule a follow-up appointment in one year or sooner if symptoms worsen. Medications: Changed From meloxicam 15 mg PO DAILY M25.551 - Pain in right hip, M25.552 - Pain in left hip, M54.16 - Radiculopathy, lumbar region To meloxicam 15 mg PO DAILY 90 tabs 3RF 90 days M25.551 - Pain in right hip, M25.552 - Pain in left hip, M54.16 - Radiculopathy, lumbar region Coding Level of Care Code Est Pt Level 4 (37979) Complex visit Add On G2211 Diagnoses Hip pain, bilateral M25.551; M25.552 Lumbar radiculitis M54.16 Lateral epicondylitis of right elbow M77.11 Polyarthralgia M25.50
--- OUTSIDE RECORDS SUMMARY | 2025-10-23 08:07 | XMS_ITS | Clinical Summary ---
Author Organization [address] [facility] Address [address] [place] [address] Phone Care Team Providers Care Metal Inspector Name Role Phone Real Dasilva MD Primary [...] AT BEDTIME 90 tablet 1 5 Active hydrOXYzine HCL (ATARAX) 50 mg tablet Take 1 tablet (50 mg total) by mouth 1 (one) time each day. Active Botox 200 unit injectionIndicat ions:migraine prevention Inject 155 units with 45 wasted every 12 weeks for chronic migraine 1 each 3 5 Active atogepant (Qulipta) 60 mg tabletIndication s: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 aura and with status migrainosus Take 60 mg by mouth 1 (one) time each day. 30 tablet 2 5 10/04/20 25 Discontin ued(Thera py completed ) onabotulinumtoxi nA (Botox) 200 unit injection Inject 200 Units into the shoulder, thigh, or buttocks every 3 (three) months. 10/04/20 25 Discontin ued(Thera py completed ) Botox 200 unit injectionIndicat ions:migraine prevention Inject 200 Units into the shoulder, thigh, or buttocks every 3 (three) months. Inject 155 units with 45 wasted every 12 weeks for chronic migraine 10/04/20 25 Discontin ued(Reord er) Active Problems Problem Noted Date Diagnosed Date Mitral valve prolapse 08/08/2025 Polycystic ovary syndrome 08/08/2025 Class 1 obesity 08/08/2025 Complex regional pain syndro me type 1 of left lower extremity 08/08/2025 COVID-19 08/08/2025 Palpitation 08/08/2025 Focal seizures (CMS/HCC V24, CMS/HCC V28) 2024 AAA (abdominal aortic aneurysm) ([facility] V24) Pure hypercholesterolemia 10/12/2023 SALVADOR (stress urinary incontinence, female) 2021 Overview (09/05/2024): Last Assessment & Plan: Reviewed behavioral modifications including kegel exercises, and avoiding bladder irritants. Discussed option for referral to urogynecology. As patient has previously been evaluated by urogynecology at [facility] she would like to return to the [...] prolapse) 08/28/2008 Overview (09/05/2024): Sees dr neal, CAITLIN ANTIBOITIC PROPHYLAXIS- AMOX Seizures (CMS/HCC V24, CMS/HCC V28) 08/28/2008 Overview (09/05/2024): Since age 8, none for years off meds, sees Jose Angel Resolved Problems Problem Noted Date Diagnosed Date Resolved Date BRCA negative 09/05/2024 09/05/2024 Interstitial cystitis 05/11/20162024 Encounters Date Type Department Care Team Description 09/25/2025 10:20 AM EDT Office Visit [facility] [place] [address] [place] [address] Kaleb Campo MD Migraine with aura and without status migrainosus, not intractable (Primary Dx); Seizure disorder (CMS/HCC V24, CMS/HCC V28); Seizures (CMS/HCC V24, CMS/HCC V28); 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 aura and with status migrainosus; Spasm; Memory change; High total serum IgG 09/11/2025 3:30 PM EDT Office Visit [address] [place] [address] Huy Sanchez MD White matter abnormality on MRI of brain (Primary Dx); Migraine with aura and without status migrainosus, not intractable; Memory change; Anxiety 08/15/2025 Telephone [facility] [place] [address] [place] [address] Kaleb Campo MD 08/08/2025 11:00 AM EDT Office Visit Adult [address] [id number] Margret Collins PA Rash and nonspecific skin eruption (Primary Dx); Primary hypertension 07/25/2025 6:54 AM EDT - 07/25/2025 11:59 PM EDT Hospital Encounter [facility] Interventional Radiology [address] [place] [address] White matter lesion of central nervous system; White matter abnormality on MRI of brain Discharge Disposition: Home or Self Care 07/24/2025 10:00 AM EDT Telemedicine [facility] [address] [facility] [address] [place] [address] Huy Sanchez MD White matter abnormality on MRI of brain (Primary Dx); Migraine with aura and without status migrainosus, not intractable; Anxiety; Memory change from Last 3 Months Immunizations Immunization Administration Dates Next Due H1N1 Inj Preservative [...] OTHER SURGICAL HISTORY 10 yrs old PROCEDURE: AL DILAT FEMALE URETHRA W/SUPPOSITORY&/INSTLJ INI ESOPHAGOGASTRODUODENOSCOPY 12/06 PROCEDURE: AL ESOPHAGOGASTRODUODENOSCOPY TRANSORAL DIAGNOSTIC; COMMENT: normal findings COLONOSCOPY 12/06 PROCEDURE: HISTORICAL COLONOSCOPY; COMMENT: normal findings; due 2017 BREAST LUMPECTOMY PROCEDURE: ---- BREAST LUMP BIOPSY ----; COMMENT: LCIS; in high-risk program at [facility]. 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); COMMENT: Sees dr neal [...] COMMENT: 11/30/2021 AAA (abdominal aortic aneury sm) ([facility] V24) Family History Medical History Relation Name Comments Multiple sclerosis Daughter 1 Diabetes Father Lymphoma Father Colon cancer Father's side 1 Minerva in her 40s ( Dad's sister) Ovarian cancer Father's side 1 Minerva in her 40s Colon cancer Father's side 2 Raisa Minerva's josea lfredo ghter Other cancer Maternal Grandfather mult my eloma Breast cancer Mother age 28 Multiple sclerosis Mother Other cancer Mother ovarian - Serto lli Leydig RARE Other: mult myeloma Mother Ovarian cancer Mother Other cancer Paternal Grandmother leukemi a Uterine cancer Neg Hx Relation Name Status Comments Brother 1 in MICHELLE Q 06/2004; MVP Brother 2 Alive A&W Daughter 1 Daughter 2 Alive 18yrs; ?MS, Service Station Equipment Mechanic hn's Father Alive DMII, HTN, obes e [...] care for your loved ones. For example, childcare center administrator or elderly care for an older adult? [...] Date Recorded What is your living situation? Unrecognized valu e 02/28/2025 Interpersonal Safety Answer Date Record ed Physical Abuse Unrecognized value 06/11/2025 Verbal Abuse Unrecognized value 06/11/2025 Comments No Sex and Gender Information [...] Sign Reading Time Taken Comments Blood Pressure 149/92 09/25/2025 10:22 AM EDT Pulse 59 09/25/2025 10:22 AM EDT Temperature 36.6 C (97.8 F) 08/08/2025 11:03 AM EDT Respiratory Rate 16 08/08/2025 11:03 AM EDT Oxygen Saturation 99% 09/11/2025 3:24 PM EDT Inhaled Oxygen Concentration - - Weight 81.6 kg (180 lb) 09/25/2025 10:22 AM EDT Height 165.1 cm (5' 5 ) 09/25/2025 10:22 AM EDT Body Mass Index 29.95 09/25/2025 10:22 AM EDT Plan of Treatment Upcoming Encounters Date Type Department Care Team (Late st Contact Info) Description 06/04/2026 11:00 AM EDT Ancillary Procedure [facility] [address] [facility] [address] [place] [address] Health Maintenance Due Date Last Done Comments Colorectal Cancer Screening: Colonoscopy 1969 DTaP,Tdap,and Td Vaccines (1 - Tdap) 1988 Hepatitis B Vaccines (1 of 3 - 19+ 3-dose series) 1988 Pneumococcal Vaccine: 50+ Years (1 of 2 - PCV) 1988 RSV Immunization Adult Patients (1 - Risk 50-74 years 1-dose series) 2019 Zoster Vaccines (1 of 2) 2019 Hepatitis C Screening 11/07/2022 COVID-19 Vaccine (3 - 2024- season) 2025 04/09/2021, 03/19/2021 Influenza Vaccine (#1) 2025 0, 09/20/2018, 09/21/2017, Additional history exists Social Influencers of Health Screening 02/28/2026 02/28/2025 Hypertension/CHF/CAD Annual BMP Blood Test 06/11/2026 06/11/2025, 01/18/2025, 09/27/2024, Additional history exists Breast Cancer Screening 08/24/2027 08/24/20, 08/24/2025, 08/24/2025, Additional history exists Cholesterol Screening (Lipid Panel) 09/27/2029 09/27/2024, 10/12/2023 HIV Screening Completed 07/25/2010 Depression Screening Completed [...] Procedure Name Priority Date/Time Associated Diagnosis Comments MG MAMMO DIGITAL SCREENING BILAT Routine 08/24/2025 11:58 AM EDT EXTERNAL MAMMOGRAM REPORT 08/24/2025 EXTERNAL MAMMOGRAM REPORT 08/24/2025 VARICELLA ZOSTER ANTIBODY IGG Routine 07/25/2025 10:44 [...] BANDING Routine 07/25/2025 7 :52 AM EDT COMPREHENSIVE METABOLIC PANEL Routine 06/11/2025 9:48 AM EDT LIPID PANEL Routine 10/12/2023 HM HIV SCREENING Routine 07/25/2010 from Last 3 Months or Most Recently Relevant to Health Maintenance Results * MG Mammo Digital Screening bilat (08/24/2025 11:58 AM EDT) Anatomical Region Laterality Modality Breast Bilateral Mammography Sully Dumas MD [facility] BI PROCEDURES Final Res ult * External Mammogram Report (08/24/2025) Only the most recent of2 resultswithin the time period is included. Anatomical Region Laterality Modality Mammography us Provider [facility] BI PROCEDURES Final Result * Varicella zoster antibody IgG (07/25/2025 10:44 AM EDT) Varicella IgG Positive Positive LAB CHEMISTRY METHOD 07/25/2025 1:42 PM EDT [facility] Varicella Zoster IgG 9.51 >=1.00 S/CO LAB CHEMISTRY METHOD 07/25/2025 1:42 PM EDT [facility] Blood Venous blood specimen / Unknown Venipuncture / Unknown 07/25/2025 10:44 AM EDT 07/25/2025 10:44 AM EDT Narrative [facility] - 07/25/2025 1:42 PM EDT Interpretation >= 1.00 S/CO is considered to be consistent with Immunity Huy Sanchez MD LAB BLOOD ORDERABLES Fin al Result [facility] [address] [place] [address], * IR Lumbar Puncture Diagnostic w Fluoro/CT [...] Signed Date: 07/25/2025 14:06 ET Workstation ID: [id number] Transcribed By: Self Edit Transcribed Date: 07/25/2025 12:35 ET Resident/PA/CAR REPAIRER HELPER: Josiane Newman Narrative 07/25/2025 2:06 PM EDT [...] Signed Date: 07/25/2025 14:06 ET Workstation ID: [id number] Transcribed By: Self Edit Transcribed Date: 07/25/2025 12:35 ET Resident/PA/CAR REPAIRER HELPER: Josiane Newman Huy Sanchez MD IMG IR PROCEDURES Final Result * (ABNORMAL) Immunoglobulin G, CSF (07/25/2025 9:16 AM EDT) Immunoglobulin G (IgG) CSF 4.3(H) 0.0 - 3.4 mg/dL 07/31/2025 9:10 AM EDT [facility] Comment: Test performed at [facility], [address], [place] [address] Alejandra Mendes MD, PhD - Independent Living Instructor Cerebrospinal Fluid Lumbar subarachnoid space / Unknown Non-blood Collection / Unknown 07/25/2025 9:16 AM EDT 07/25/2025 9:35 AM EDT us Huy Sanchez MD LAB BODY FLUIDS AND STOO LS ORDERABLES Final Result Performing Organization Address City/[facility]/ZIP Co de Phone Number [facility] [address] [place] [address] * AUTOIMMUNE ENCEPHALITIS PANEL - Miscellaneous Test (07/25/2025 9:16 AM EDT) Pathologist [facility] Scan Result See Scanned Result 08/14/2025 2:39 PM EDT [facility] Cerebrospinal Fluid Non-blood Collection / Unknown 07/25/2025 9:16 AM EDT 07/25/2025 9:35 AM EDT us Huy Sanchez MD LAB BLOOD ORDERABLES Fin al Result [facility] * (ABNORMAL) Protein, CSF (07/25/2025 9:16 AM EDT) Protein, CSF 72(H) 15 - 45 mg/dL LAB CHEMISTRY METHOD 07/25/2025 11:06 AM EDT [facility] Cerebrospinal Fluid Lumbar subarachnoid space / Unknown Non-blood Collection / Unknown 07/25/2025 9:16 AM EDT 07/25/2025 9:35 AM EDT Huy Sanchez MD LAB BODY FLUIDS AND STOO LS ORDERABLES Final Result [facility] [address] [place] [address], * Myelin basic protein, CSF (07/25/2025 9:16 AM EDT) Myelin Basic Protein <2.0 < OR = 4.0 mcg/L 08/01/2025 4:37 PM EDT [facility] Comment: Result Interpretation < or = 4.0 mcg/L Negative 4.1-6.0 mcg/L Weakly Positive >6.0 mcg/L Positive This test was developed and its analytical performance characteristics have been determined by [facility]. It has not been cleared or approved by the FDA. This assay has been validated pursuant to the CLIA regulations and is used for clinical purposes. Test Performed at: [facility] [address] [address] Jorge Hodges MD, PhD, ARCHANA Cerebrospinal Fluid Lumbar subarachnoid space / Unknown Non-blood Collection / Unknown 07/25/2025 9:16 AM EDT 07/25/2025 9:35 AM EDT Huy Sanchez MD LAB BODY FLUIDS AND STOO LS ORDERABLES Final Result [facility] [address] [place] [address] * Oligoclonal banding (07/25/2025 7:52 AM EDT) Oligoclonal Bands See Below 2:24 PM EDT [facility] Comment: The sample is negative for CSF-specific oligoclonal bands. The CSF sample contains oligoclonal bands; however, since the corresponding serum contains the same oligoclonal bands, this does not indicate CSF-specific oligoclonal banding, and this is considered a negative study. Test performed at [facility], [address], [place] [address] Alejandra Mendes MD, PhD - Independent Living Instructor Blood Venous blood specimen / Unknown Venipuncture / Unknown 07/25/2025 7:52 AM EDT 07/25/2025 7:58 AM EDT Huy Sanchez MD LAB BLOOD ORDERABLES Fin al Result [facility] [address] [place] [address] * (ABNORMAL) Comprehensive metabolic panel (06/11/2025 9:48 AM EDT) Sodium 140 135 - 145 mmol/L LAB CHEMISTRY METHOD 06/11/2025 11:11 AM EDT [facility] Potassium 3.9 3.5 - 5.1 mmol/L LAB CHEMISTRY METHOD 06/11/2025 11:11 AM EDT [facility] Chloride 104 98 - 107 mmol/L LAB CHEMISTRY METHOD 06/11/2025 11:11 AM EDT [facility] CO2 30 24 - 32 mmol/L LAB CHEMISTRY METHOD 06/11/2025 11:11 AM EDT [facility] Anion Gap 6 5 - 14 LAB CHEMISTRY METHOD 06/11/2025 11:11 AM EDT [facility] Glucose 105 70 - 199 mg/dL LAB CHEMISTRY METHOD 06/11/2025 11:11 AM EDT [facility] BUN 16 7 - 17 mg/dL LAB CHEMISTRY METHOD 06/11/2025 11:11 AM EDT [facility] Creatinine 0.60 0.50 - 1.00 mg/dL LAB CHEMISTRY METHOD 06/11/2025 11:11 AM EDT [facility] eGFR 106 >=60 mL/min/1. 73m2 LAB CHEMISTRY METHOD 06/11/2025 11:11 AM EDT [facility] Comment:Calculation based on the Chronic Kidney Disease Epidemiology Collaboration (CKD-EPI) equation refit without adjustment for race. BUN/Creatinine Ratio 26.7(H) 12.0 - 20.0 LAB CHEMISTRY METHOD 06/11/2025 11:11 AM EDT [facility] Calcium 9.3 8.4 - 10.2 mg/dL LAB CHEMISTRY METHOD 06/11/2025 11:11 AM EDT [facility] AST (SGOT) 22 5 - 40 unit/L LAB CHEMISTRY METHOD 06/11/2025 11:11 AM [facility] ALT (SGPT) 17 7 - 52 unit/L LAB CHEMISTRY METHOD 06/11/2025 11:11 AM [facility] Alkaline Phosphatase 42 34 - 104 unit/L LAB CHEMISTRY METHOD 06/11/2025 11:11 AM EDT [facility] Total Protein 6.5 6.4 - 8.5 g/dL LAB [facility]STR[facility]11[facility]25 [facility] Albumin 4.1 3.5 - 5.0 g/dL LAB CHEMISTRY METHOD 06/11/2025 11:11 AM [facility] Total Bilirubin 0.2(L) 0.3 - 1.0 mg/dL LAB CHEMISTRY METHOD 06/11/2025 11:11 AM T [facility] Blood Venous blood specimen / Unknown Venipuncture / Unknown 06/11/2025 9:48 AM EDT 06/11/2025 10:35 AM EDT us Yen Redmond CAR REPAIRER HELPER LAB BLOOD ORDERABLES Glenny rodriguez Result [facility] [address] [place] [address], [place] [phone] * (ABNORMAL) Lipid panel (10/12/2023) LDL/HDL Ratio 3 0 - 4 Triglycerides 142 0 - 150 mg/dL Cholesterol 239(A) 0 - 200 mg/dL HDL 90 >=40 mg/dL LDL Cholesterol 121(A) 0 - 100 mg/dL Blood Venous blood specimen / Unknown Historical Provider LAB BLOOD ORDERABLES Glenny l Result * HIV Screening (07/25/2010) Pathologist [facility] HIV Screening abstracted Historical Provider HEALTH MAINTENANCE Final Result from Last 3 Months or Most Recently Relevant to Health Maintenance Insurance [facility] Advance Directives * Full Code - Confirmed (Latest Code Status on File) Date Activated Date Inactivated Comments 06/11/2025 9:17 AM 06/15/2025 2:18 PM This code s tatus was ascertained in the following way: Code status discussion: discussion with patient To update the patient's code status, place a code status order. Do not modify or discontinue any currently active code status orders. Care Teams Metal Inspector Relationship Specialty Start Date End Date Real Dasilva MD [address] [place] [address] PCP - General 08/23/24
--- OUTSIDE RECORDS SUMMARY | 2025-10-23 08:07 | XMS_ITS | Clinical Summary ---
Author Organization [facility] Address [address] [place] [address] Care Team Providers Care Tech Intern Name Role Phone Arlette Palmer MD Primary Care Provider [phone] Allergies Active Allergy Reactions Criticality Noted Date [...] age to complete this topic Care Teams Tech Intern Relationship Specialty Start Date End Date Arlette Palmer MD PCP - General Internal Medicine 03/29/18
--- OUTSIDE RECORDS SUMMARY | 2025-10-23 08:07 | XMS_ITS | Data Portability ---
Author Organization [facility] Address [address] [place] [address] Care Team Providers Care [employer] Name Role Phone CARLOS CHIU Primary Care Provider [phone] Assessment No assessment recorded. Plan of Treatment Reminders Order Date Submit Date Provider Last Modified By Organization Details Last Modified Time Details Appointments None recorde d. Lab None recorde d. Referral None recorde d. Procedures None recorde d. Surgeries None recorde d. Imaging XR, shoulde r, 2 or more view - left shldr rm 3 025 12/13/19 [facility], [address], [address], [place], [address], 10:11:30 Medication Orders None recorde d. Patient TargetsNo targets recorded. Patient InstructionsNo instructions recorded. Reason for Referral None Reported. Results Created Date Observation Date Name Description Value Unit Range Abnormal Flag Note LastModifiedBy Organization Detail LastModifiedTime 12/13/1912/13/2024 XR, shoul ryland, 2 or more view http:/ [email or web address] ?Encry pted=s hAaTro YD8dLq bEUv6g %2BXZw aYqtaq 0bqfl% 2Fg9IQ a4ajBk vP9nXo QUaueC m3YtLR FvZlgJ JJ8mAn HZtai3 5i8486 AC0Kqb 3mAVKS kKiQtr MwF INTERFACE [facility] [address], [place], [address], 12/13/2024 10:11:31 12/13/19 25 12/13/2024 XR, shoul ryland, 2 or more view http:/ [email or web address] ?Encry pted=s hAaTro YD8dLq bEUv6g %2BXZw aYqtaq 0bqfl% 2Fg9IQ a4ajBk vP9nXo QUaueC m3YtLR FvZlgJ JJ8mAn HZtai3 7l6848 AC0Kqb 3mAVKS kKiQtr MwF INTERFACE [facility] [address], [place], [address], 12/13/2024 10:11:32 Result Notes Documentation Provider Name and Address Organization Details Recorded Time Xr, Shoulder, 2 Or More View : [email or web address] Encrypted=xqDrKmkDB5jJzqC Uv6g%8RMSklMljcd5thfq%2Fg 3KVm1irMlcF1rSiFPhicZn3Du RSMxZlpVFJ4kYoXNpsv63q253 6OJ7Lub1lQGYZoXkBfiNnF Not Available [facility] 12/13/2024 10:11: 31 Xr, Shoulder, 2 Or More View : [email or web address] Encrypted=raOqLwfYR4gRpmA Uv6g%8UZMngZtmaa2oyjx%2Fg 9LKw9krDyrI8bVjYYjbgYm3Dt INWaHtcRMH2vEqZYjmu87p797 6NG2Bat3fRESIhErVoiXxD Not Available [facility] 12/13/2024 10:11: 33 Procedures Surgical History Date Name Laterality Status Provider Name and Address Organization Details Recorded Time Sports Shoulder 4&1 completed Osmar Pruitt PA-C [address], [place], [address], [facility] - [facility] 12/13/2024 10:39:45 Imaging Results None recorded. Procedure Notes None recorded. Medical Equipment None Reported. Allergies Allergen ID Allergen Name Allergen Category Reaction Reaction Severity Criticality Documentation Date Start Date Code Code System Note Provider Name and Address Organization Details Recorded Time 83683 Levaquin medicatio n Not available Not available Not available 01/31/2024200899 2 RxNorm Aller gyRea ction : 'Shoc k/Unc onsci ousne ss'; Not Available [facility] 4 14:03:45 79259 Substance with sulfonami de structure and antibacte rial mechanism of action (substanc e) medicatio n Not available Not available Not available 01/31/20242008 30366 8003 SNOMED Aller gyRea ction : 'Asth ma/Sh ort of Breat h'; Not Available [facility] 4 14:03:46 84970 Cipro medicatio n Not available Not available Not available 01/31/2024200856 3 RxNorm Aller gyRea ction : 'Asth ma/Sh ort of Breat h'; Not Available [facility] 4 14:03:46 20710 Bactrim medicatio n Not available Not available Not available 01/31/20242008 13587 9 RxNorm Aller gyRea ction : 'Asth ma/Sh ort of Breat h'; Not Available [facility] 4 14:03:46 07937 Biaxin medicatio n Not available Not available Not available 01/31/2024200872 9 RxNorm Aller gyRea ction : 'Skin React ion'; Not Available [facility] 4 14:03:46 99238 Keflex medicatio n Not available Not available Not available 01/31/2024200816 7 RxNorm Aller gyRea ction : 'Skin React ion'; Not Available [facility] 4 14:03:46 14028 Iodinated contrast media (substanc e) medicatio n Not available Not available Not available 01/31/20242021 90092 2003 SNOMED Aller gyNam e: 'Cont rast Dye'; Not Available [facility] 4 14:03:46 Medications Name Sig Start Date [...] Updated DateTime 12/13/2024 165.1 cm 26.6 kg/m2 45275.78 g Anamika Hanna MA - [facility] 12/13/2024 09:58:42 Social History None recorded. Functional Status None recorded. Mental Status None recorded. Family History Nothing Reported. Medical History No medical history recorded. Gynecological HistoryNo gynecological history recorded. Obstetrics History GPAL:G 0 P 0 0 0 0 Past Encounters Encounter ID Performer Location Encounter Start Date Encounter Closed Date Diagnosis/Indication Diagnosis SNOMED-CT Code Diagnosis ICD10 Code Diagnosis IMO Codes Diagnosis Note [id number] Osmar Pruitt PA-C [facility] [address] [place] [address] 12/13/2024 08:46:09 12/27/2024 11:25:21 Pain of left shoulder region 0962646907 M25.512 [id number] Health Concerns Section Related Observation LastModified by Organization Detai ls LastModified Time None Recorded Concern Status LastModified by Organization Details LastModified Time None Recorded Advance Directives Directive None Recorded Payers Insurance Date Sequence Insurance Name Policy Number Policy Santiago Covered Member ID Santiago Member ID Guarantor Name 05/14/2025 1 [place] [id number] Ameya Caicedo [id number] Laura Caicedo Notes Date Note Type [...] normal limits.X-rays ordered, obtained and reviewed at [facility] 4 views left shoulder view demonstrate [...] follow-up as needed. Osmar Pruitt PA-C [address] [facility] [address] [address], [place], [address], [facility] - [facility] 12/13/2024 10:40:30 OBGyn Episode No OBEpisode recorded.
--- OUTSIDE RECORDS SUMMARY | 2025-10-23 08:07 | XMS_ITS | Clinical Summary ---
Author Organization [facility] Address [address] [place] [address] Care Team Providers Care Track Surfacing Machine Operator Name Role Phone Xochitl Palmer MD Primary Care Provider [phone] Social History Tobacco Use Types Packs/Day Years [...] 2019 COVID-19 Vaccine (1 - season) 2025 RSV Vaccine 50 years and old er and Patients (1 - 1-dose 75+ series) 2044 Care Teams Track Surfacing Machine Operator Relationship Specialty Start Date End Date Xochitl Palmer MD [address] [place] [address] PCP - General
== END 2025-10-23 08:22 | disposition home or self-care (01) ==
LOC: HO.HPHYS 07:57
PROVIDERS: PCP Internal Medicine; Visit Provider Physical Medicine & Rehabilitation
DX: M25.551 Pain in right hip (principal); M25.552 Pain in left hip; M54.16 Radiculopathy, lumbar region; M77.11 Lateral epicondylitis, right elbow; M25.50 Pain in unspecified joint
CPT/HCPCS: 99214